=== PATIENT | male | born 1960 | race Caucasian/White ===

== ENCOUNTER 2018-12-31 08:16 | Inpatient (IN) | payer BC ==
[~2018-12-31 08:16] MED LIST: Adenosine 6 MG/2 ML SDV IVPUSH ONE
[2018-12-31] MEDS ORDERED: Adenosine 12 MG/4 ML SDV ONE (08:21)
[2018-12-31] MEDS ORDERED: Diltiazem 50 MG/10 ML SDV IVPUSH STA (08:31)
[2018-12-31] MEDS ORDERED: Diltiazem 50 MG/10 ML SDV ONE (08:32)
--- NOTE | 2018-12-31 08:44 | EDM.PDOC ---
ED HPI GENERAL MEDICAL PROBLEM - General Chief Complaint: Cardiovascular Problem Stated Complaint: [facility] Time Seen by Provider: 12/31/18 08:16 Source of Information: Reports: Patient, EMS History Limitations: Reports: No Limitations - History of Present Illness INITIAL COMMENTS - FREE TEXT/NARRATIVE: The patient states that he was exercising at home, beginning around 06:40. Around 07:10, he developed nausea and diaphoresis. He sat down and vomited, which made him feel better, but EMS was called. When EMS arrived, they found the patient to have a rapid regular heartbeat. An ECG was obtained and faxed to us, which appears to demonstrate an SVT at 196 bpm. At no time did the patient experience chest discomfort or lightheadedness. Upon arrival to the ED, the patient's heart rate was 201 bpm, still narrow complex on the ECG. 12 mg of adenosine was given, which slowed the patient's heart rate somewhat, after which it has remained regular at about 115 bpm. The patient states that he feels considerably better than he did. The patient states that he was diagnosed with atrial fibrillation in August 2018, while in [place]. He states that he was given a medicine to slow his heart down, for about 8 hours. He states that he was told that his heart enzyme was mildly elevated. He states that he suffered a second episode in September 2018, here. Review of the medical records finds that the patient was seen in this ED on 09/09/2018, with a complaint of tachycardia. He had no chest discomfort, lightheadedness, weakness or dyspnea. He was found to be in atrial flutter with 2:1 conduction, at 134 bpm. He was given Cardizem IV push and drip, and converted to a normal sinus rhythm and he was then discharged home with no new prescriptions. The patient then returned to this ED the following day, 09/10/2018, with an elevated heart rate in the 130s, and low oxygen saturation of 85%. He again denied having any chest discomfort, lightheadedness, or dyspnea. The ECG appeared to demonstrate paroxysmal atrial tachycardia. He was again given IV Cardizem, converting to atrial flutter with variable conduction, rate controlled. His labs were unremarkable. He was then admitted to the ICU. Additional metoprolol was prescribed, and the patient was discharged home the following day, 09/11/2018. The patient's PCP is Kwasi Leiva. His Quality Assurance Inspector is Dr. Le. - Related Data Allergies Allergy/AdvReac Type Severity Reaction Status Date / Time No Known Allergies Allergy Verified 12/31/18 08:26 Home Meds: Home Meds Fenofibrate 145 mg PO DAILY 12/31/18 [History] Flecainide [Tambocor] 100 mg PO DAILY 12/31/18 [History] Hydrochlorothiazide [Microzide] 12.5 mg PO DAILY 12/31/18 [History] Lisinopril 40 mg PO DAILY 12/31/18 [History] Metoprolol Succinate 200 mg PO DAILY 12/31/18 [History] atorvaSTATin [Lipitor] 80 mg PO DAILY 12/31/18 [History] Past Medical History HEENT History: Reports: Impaired Vision Cardiovascular History: Reports: Arrhythmia (Paroxysmal atrial tachycardia vs paroxysmal atrial fibrillation vs atrial flutter with variable conduction), High Cholesterol, Hypertension Respiratory History: Reports: Sleep Apnea (nightly CPAP) Gastrointestinal History: Reports: GERD Musculoskeletal History: Reports: Back Pain, Chronic, Fracture (right hand), Osteoarthritis - Infectious Disease History Infectious Disease History: Reports: Chicken Pox - Past Surgical History HEENT Surgical History: Reports: Oral Surgery (wisdom teeth extraction), Tonsillectomy (1980) GI Surgical History: Reports: Hernia, Abdominal (umbilical, 1994) Other GI Surgeries/Procedures: umbilical hernia Neurological Surgical History: Reports: Other (See Below) (Bilateral feet nerve ablation) Social & Family History - Family History Family Medical History: Noncontributory - Tobacco Use Smoking Status *Q: Former Smoker Years of Tobacco use: 42 Packs/Tins Daily: 1 Month/Year Tobacco Last Used: Quit mid - Caffeine Use Caffeine Use: Reports: Coffee - Alcohol Use Alcohol Use History: Yes Alcohol Use Frequency: Socially (occasionally to excess) - Recreational Drug Use Recreational Drug Use: No - Living Situation & Occupation Living situation: Reports: , with Spouse, with Family (1 son) Occupation: Employed ([employer]) ED ROS GENERAL - Review of Systems Review Of Systems: ROS reveals no pertinent complaints other than HPI. ED EXAM, GENERAL - Physical Exam Exam: See Below Exam Limited By: No Limitations General Appearance: Alert, WD/WN, No Apparent Distress Eye Exam: Bilateral Eye: EOMI, Normal Inspection Ears: Normal External Exam, Hearing Grossly Normal Nose: Normal Inspection Throat/Mouth: Normal Inspection, Normal Lips, Normal Voice, No Airway Compromise Head: Atraumatic, Normocephalic Neck: Normal Inspection, Full Range of Motion Respiratory/Chest: No Respiratory Distress, Lungs Clear, Normal Breath Sounds, No Accessory Muscle Use. No: Crackles, Rhonchi, Wheezing Cardiovascular: Normal Peripheral Pulses, No Edema, No Gallop, No JVD, No Murmur , No Rub, Tachycardia (regular) Peripheral Pulses: 3+: Radial (L), Radial (R) GI/Abdominal: Normal Bowel Sounds, Soft, Non-Tender, No Organomegaly, No Distention, No Abnormal Bruit, No Mass, Other (Obese) (Male) Exam: Deferred Rectal (Males) Exam: Deferred Back Exam: Normal Inspection, Full Range of Motion, NT Extremities: Normal Inspection, Normal Range of Motion, No Pedal Edema, Normal Capillary Refill Neurological: Alert, Oriented, Normal Cognition, No Motor/Sensory Deficits Psychiatric: Normal Affect Skin Exam: Warm, Intact, Normal Color, No Rash, Diaphoretic Course - Vital Signs Last Recorded V/S: Last Vital Signs Temp 36.8 C 12/31/18 08:21 Pulse 86 12/31/18 10:57 Resp 17 12/31/18 10:57 BP 131/71 12/31/18 11:31 Pulse Ox 96 12/31/18 10:57 - Orders/Labs/Meds Orders: Active Orders 24 hr Category Date Time Status Admission Status [Patient Status] [ADT] Routine ADT 12/31/18 11:48 Ordered EKG Documentation Completion [RC] STAT Care 12/31/18 08:32 Active TROPONIN I [CHEM] Timed Lab 12/31/18 13:00 Ordered Diltiazem 125 mg Med 12/31/18 08:45 Active Sodium Chloride 0.9% [Normal Saline] 100 ml IV TITRATE Sodium Chloride 0.9% [Normal Saline] 1,000 ml Med 12/31/18 08:45 Active IV ASDIRECTED Medication Orders Diltiazem HCl 125 mg/ Sodium (Chloride) 125 mls @ 10 mls/hr IV TITRATE KATTY; Protocol Last Admin: 12/31/18 09:05 Dose: 10 mg/hr, 10 mls/hr Sodium Chloride (Normal Saline) 1,000 mls @ 100 mls/hr IV ASDIRECTED KATTY Last Admin: 12/31/18 09:07 Dose: 100 mls/hr Labs: Laboratory Tests 12/31/18 12/31/18 Range/Units 09:00 09:00 WBC 6.28 (4.23-9.07) K/mm3 RBC 5.41 (4.63-6.08) M/mm3 Hgb 15.9 (13.7-17.5) gm/L Hct 47.3 (40.1-51.0) % MCV 87.4 (79.0-92.2) fl MCH 29.4 (25.7-32.2) pg MCHC 33.6 (32.2-35.5) g/dl RDW Std Deviation 42.4 (35.1-43.9) fL Plt Count 196 (163-337) K/mm3 MPV 10.1 (9.4-12.3) fl Neutrophils % (Manual) 76 H (40-60) % Band Neutrophils % 3 (0-10) % Lymphocytes % (Manual) 17 L (20-40) % Atypical Lymphs % 0 % Monocytes % (Manual) 3 (2-10) % Eosinophils % (Manual) 1 (0.8-7.0) % Basophils % (Manual) 0 L (0.2-1.2) Platelet Estimate Adequate RBC Morph Comment Normal Sodium 141 (136-145) mEq/L Potassium 3.4 L (3.5-5.1) mEq/L Chloride 103 (98-107) mEq/L Carbon Dioxide 26 (21-32) mEq/L Anion Gap 15.4 H (5-15) BUN 20 H (7-18) mg/dL Creatinine 1.2 (0.7-1.3) mg/dL Est Cr Clr Drug Dosing 59.81 mL/min Estimated GFR (MDRD) > 60 (>60) mL/min BUN/Creatinine Ratio 16.7 (14-18) Glucose 185 H (74-106) mg/dL Calcium 9.1 (8.5-10.1) mg/dL Magnesium 1.8 (1.8-2.4) mg/dl Total Bilirubin 0.5 (0.2-1.0) mg/dL AST 27 (15-37) U/L ALT 26 (16-63) U/L Alkaline Phosphatase 45 L (46-116) U/L Troponin I 0.107 H* (0.00-0.056) ng/mL Total Protein 7.3 (6.4-8.2) g/dl Albumin 3.9 (3.4-5.0) g/dl Globulin 3.4 gm/dL Albumin/Globulin Ratio 1.2 (1-2) Meds: Medications Generic Name Dose Route Start Last Admin Trade Name Freq PRN Reason Stop Dose Admin Diltiazem HCl 125 mg/ Sodium 125 mls @ 10 mls/hr 12/31/18 08:45 12/31/18 09: 05 Chloride IV 10 mg/hr TITRATE KATTY 10 mls/hr Administration Protocol 10 MG/HR Sodium Chloride 1,000 mls @ 100 mls/hr 12/31/18 08:45 12/31/18 09:07 Normal Saline IV 100 mls/hr ASDIRECTED KATTY Administration Discontinued Medications Generic Name Dose Route Start Last Admin Trade Name Freq PRN Reason Stop Dose Admin Adenosine Confirm 12/31/18 08:21 12/31/18 08:58 Adenocard Administered 12/31/18 08:22 Not Given Dose 36 mg .ROUTE .STK-MED ONE Adenosine 12 mg 12/31/18 08:15 12/31/18 08:28 Adenocard IVPUSH 12/31/18 08:16 12 mg NOW ONE Administration Diltiazem HCl 10 mg 12/31/18 08:31 12/31/18 08:58 Cardizem IVPUSH 12/31/18 08:32 Not Given ONETIME STA Diltiazem HCl Confirm 12/31/18 08:32 12/31/18 08:58 Cardizem Administered 12/31/18 08:33 Not Given Dose 50 mg .ROUTE .STK-MED ONE - Re-Assessments/Exams Free Text/Narrative Re-Assessment/Exam: 12/31/18 08:38 The ECG prior to giving adenosine showed a narrow complex tachycardia, regular, at 201 bpm. After adenosine was given, there was a slowdown of ventricular response, with no P waves being seen, and since covering from the adenosine, the patient is now in a persistent regular rhythm at 108 bpm, most likely atrial flutter with 3:[address] depressions persist. We will start the patient on a Cardizem drip. Labs have been ordered. 12/31/18 10:02 Portable chest radiograph is read by Dr. Maharaj as: 1. Nothing acute is seen on portable chest x-ray. 12/31/18 10:19 Test results discussed with the patient. The patient's troponin has returned mildly elevated 0.107, and his blood glucose has returned elevated at 185. The remainder of his workup is unremarkable. The patient's elevated troponin does not necessarily mean a myocardial infarction. It could be elevated due to decreased filling time, related to his elevated heart rate. It will need to be repeated. The patient's elevated blood glucose indicates that he has prediabetes. I briefly discussed getting the patient on a diabetic/low glycemic index diet. He will need to be educated in this regard. I recommended that the patient be admitted to the hospital for continued rate control and repeat troponin. The patient agreed. 12/31/18 10:[address] Adames at 10:53. He accepted the patient for admission to the ICU, however, no ICU beds are currently available, therefore the patient will need to be kept in the ED until an ICU bed is made available. In the meantime, I have ordered a repeat troponin to be drawn at 13:00, 4 hours after the first troponin. The patient will be kept on the Cardizem drip and IV fluid. He will be allowed to eat. Departure - Departure Time of Disposition: 11:00 Disposition: Admitted As Inpatient 65 Condition: Fair Clinical Impression: Atrial fibrillation and flutter, Elevated troponin I level, Acute hyperglycemia Referrals: Kwasi Leiva PA-C [Primary Care Provider] - Bk Le MD [Ordering Only Provider] - - My Orders Last 24 Hours: My Active Orders 12/31/18 08:32 EKG Documentation Completion [RC] STAT 12/31/18 08:45 Diltiazem 125 mg Sodium Chloride 0.9% [Normal Saline] 100 ml IV TITRATE Sodium Chloride 0.9% [Normal Saline] 1,000 ml IV ASDIRECTED 12/31/18 11:48 Admission Status [Patient Status] [ADT] Routine 12/31/18 13:00 TROPONIN I [CHEM] Timed - Assessment/Plan Last 24 Hours: My Active Orders 12/31/18 08:32 EKG Documentation Completion [RC] STAT 12/31/18 08:45 Diltiazem 125 mg Sodium Chloride 0.9% [Normal Saline] 100 ml IV TITRATE Sodium Chloride 0.9% [Normal Saline] 1,000 ml IV ASDIRECTED 12/31/18 11:48 Admission Status [Patient Status] [ADT] Routine 12/31/18 13:00 TROPONIN I [CHEM] Timed
[2018-12-31] MEDS ORDERED: Diltiazem 125 MG in Sodium Chloride 0.9% 100 ML IV SCH (08:45)
[2018-12-31] MEDS: Sodium Chloride 0.9% 1,000 ML IV SCH ×2 (09:07→22:17)
--- NOTE | 2018-12-31 09:51 | CR ---
Chest: Portable view of the chest was obtained. Comparison: Prior chest x-ray of 09/09/18. Heart size and mediastinum are within normal limits for portable technique. Lungs are clear. Bony structures are grossly intact. Impression: 1. Nothing acute is seen on portable chest x-ray. Diagnostic code #1
[2018-12-31] MEDS ORDERED: HYDROmorphone 1 MG/ML Syringe IVPUSH PRN (12:33)
[2018-12-31] MEDS ORDERED: Ondansetron 4 MG/2 ML SDV IV PRN (12:33)
[2018-12-31] MEDS ORDERED: Acetaminophen/HYDROcodone 325-5 MG Tab PO PRN (12:33)
[2018-12-31] MEDS ORDERED: Docusate Sodium 100 MG Cap PO PRN (12:33)
[2018-12-31] MEDS ORDERED: Albuterol/Ipratropium 3.0-0.5 MG/3 ML Neb Soln NEB PRN (12:33)
[2018-12-31] MEDS ORDERED: Acetaminophen 325 MG Tab PO PRN (12:33)
[2018-12-31] MEDS ORDERED: Bisacodyl 5 MG Tab PO PRN (12:33)
[2018-12-31] MEDS ORDERED: Polyethylene Glycol 3350 Powder 17 GM Packet PO PRN (12:33)
[2018-12-31 13:24] LABS: HEMOGLOBIN A1C 6.1 % (4.50-6.20)
[2018-12-31] MEDS: Potassium Chloride 20 MEQ Tab.ER PO SCH ×2 (14:37→17:20)
--- NOTE | 2018-12-31 17:19 | PCM.HP ---
H&P History of Present Illness - General Date of Service: 12/31/18 Admit Problem/Dx: Admission Diagnosis/Problem Admission Diagnosis/Problem Atrial fibrillation and flutter Source of Information: Patient History Limitations: Reports: No Limitations - History of Present Illness Initial Comments - Free Text/Narative: This is a 58 yo male with past medical h/o HTN, Arrhythmia (Paroxysmal atrial tachy vs paroxysmal Afib vs Aflutter), HLD, CLEMENCIA w/ CPAP, GERD, OA who comes in for Afib/flutter w/ RVR. He was first diagnosed w/ Afib Aug 2018 in [place]. His last similar episode was here on 09/09/19 and 09/10/19. He c/o diaphoresis, palpitations, and vomiting this AM while exercising at home. He denies CP, SOB, lightheadedness, diarrhea or other GI/ complaints. EMS EKG showed SVT at 196 bpm. His initial work up in ED shows a CBC remarkable for Neut 76%, Lymph 17%. Chemistry is significant for K 3.4, AGap 15.4, BUN 20, Glu 185, Alk Phos 45. Troponin 0.107. TSH and T4 WNL. EKG showed narrow complex at 201 bpm. Adenosine 12 mg was given and became persistent regular rhythm at 108 bpm, most likely Aflutter with 3:[address] depressions persist. Cardizem drip started in ED. He is subsequently admitted to the ICU. He is a Full Code. His PCP is Kwasi Leiva PA-C. 0 Pain Score (Numeric/FACES): 0 - Related Data Allergies/Adverse Reactions: Allergies Allergy/AdvReac Type Severity Reaction Status Date / Time No Known Allergies Allergy Verified 12/31/18 13:33 Home Medications: Home Meds Ascorbic Acid [Vitamin C] 1,000 mg PO DAILY 12/31/18 [History] Aspirin [Halfprin] 81 mg PO BEDTIME 12/31/18 [History] Calcium Carbonate [Calcium] 600 mg PO DAILY 12/31/18 [History] Cinnamon Bark [Cinnamon] 500 mg PO DAILY 12/31/18 [History] Fenofibrate 145 mg PO DAILY 12/31/18 [History] Flecainide [Tambocor] 100 mg PO DAILY 12/31/18 [History] Gluc 2KCl/Chondr/Rm Hy/Hy Ac [Glucosamine & Chondroitin Cap] 1 cap PO DAILY [History] Hydrochlorothiazide [Microzide] 12.5 mg PO DAILY 12/31/18 [History] Lisinopril 40 mg PO DAILY 12/31/18 [History] Melatonin 6 mg PO BEDTIME PRN 12/31/18 [History] Metoprolol Succinate 100 mg PO BID 12/31/18 [History] Multivitamin [Multivitamins] 1 cap PO DAILY 12/31/18 [History] [place]-3/DHA/Epa/Fish Oil [[place]-3 Fish Oil Softgel] 520 mg PO DAILY 12/31/18 [ History] Vitamin E 400 units PO DAILY 12/31/18 [History] atorvaSTATin [Lipitor] 80 mg PO DAILY 12/31/18 [History] Past Medical History HEENT History: Reports: Impaired Vision Other HEENT History: wears eyeglasses for reading. Cardiovascular History: Reports: Arrhythmia, High Cholesterol, Hypertension Other Cardiovascular History: Paroxysmal atrial tachycardia. It is therefore on Eliquis to prevent stroke Respiratory History: Reports: Sleep Apnea Other Respiratory History: uses C-PAP Gastrointestinal History: Reports: GERD Musculoskeletal History: Reports: Fracture, Osteoarthritis Dermatologic History: Reports: Psoriasis - Infectious Disease History Infectious Disease History: Reports: Chicken Pox - Past Surgical History HEENT Surgical History: Reports: Oral Surgery, Tonsillectomy GI Surgical History: Reports: Hernia, Abdominal Other GI Surgeries/Procedures: umbilical hernia MESH Neurological Surgical History: Reports: Other (See Below) Social & Family History - Family History Family Medical History: Noncontributory - Tobacco Use Smoking Status *Q: Former Smoker Years of Tobacco use: 42 Packs/Tins Daily: 1 Used Tobacco, but Quit: Yes Month/Year Tobacco Last Used: 04/2017 - Caffeine Use Caffeine Use: Reports: Coffee - Alcohol Use Days Per Week of Alcohol Use: 5 Number of Drinks Per Day: 5 Total Drinks Per Week: 25 - Recreational Drug Use Recreational Drug Use: No - Living Situation & Occupation Living situation: Reports: , with Spouse, with Family (1 son) Occupation: Employed ([employer]) H&P Review of Systems - Review of Systems: Review Of Systems: See Below General: Reports: No Symptoms. Denies: Fever, Chills, Weakness, Fatigue HEENT: Reports: No Symptoms Pulmonary: Reports: No Symptoms. Denies: Shortness of Breath, Cough Cardiovascular: Reports: Blood Pressure Problem. Denies: Chest Pain, Palpitations, Dyspnea on Exertion, Lightheadedness Gastrointestinal: Reports: No Symptoms. Denies: Abdominal Pain, Diarrhea, Nausea, Vomiting Genitourinary: Reports: No Symptoms Musculoskeletal: Reports: No Symptoms Skin: Reports: No Symptoms Psychiatric: Reports: No Symptoms. Denies: Confusion Neurological: Reports: No Symptoms. Denies: Confusion Hematologic/Lymphatic: Reports: No Symptoms Immunologic: Reports: No Symptoms Exam - Exam Exam: See Below - Vital Signs Vital Signs: Last Vital Signs Temp 97.7 F 12/31/18 13:05 Pulse 72 12/31/18 15:00 Resp 20 12/31/18 15:00 BP 150/82 H 12/31/18 15:00 Pulse Ox 99 12/31/18 15:00 Weight: 261 lb - Exam Quality Assessment: DVT Prophylaxis General: Alert, Oriented, Cooperative HEENT: Conjunctiva Clear, EACs Clear, EOMI, Hearing Intact, Mucosa Moist & [place] , Nares Patent, Normal Nasal Septum, Posterior Pharynx Clear, PERRLA Neck: Supple, Trachea Midline, 2 Lungs: Clear to Auscultation, Normal Respiratory Effort Cardiovascular: Regular Rhythm, Tachycardia GI/Abdominal Exam: Normal Bowel Sounds, Soft, Non-Tender, No Organomegaly, No Distention, No Abnormal Bruit, No Mass, Pelvis Stable (Male) Exam: Deferred Rectal (Males) Exam: Deferred Back Exam: Normal Inspection Extremities: Normal Inspection, Normal Range of Motion, Non-Tender, No Pedal Edema, Normal Capillary Refill Peripheral Pulses: 3+: Posterior Tibial (L), Posterior Tibial (R), Dorsalis Pedis (L), Dorsalis Pedis (R) Skin: Warm, Dry, Intact Neurological: Cranial Nerves Intact (grossly), Strength Equal Bilateral, Sensation Intact Neuro Extensive - Mental Status: Alert, Oriented x3, Normal Mood/Affect, Normal Cognition, Memory Intact Psychiatric: Alert, Normal Affect, Normal Mood - Patient Data Lab Results Last 24 hrs: Laboratory Results - last 24 hr 12/31/18 12/31/18 12/31/18 Range/Units 09:00 09:00 09:00 WBC 6.28 (4.23-9.07) K/mm3 RBC 5.41 (4.63-6.08) M/mm3 Hgb 15.9 (13.7-17.5) gm/L Hct 47.3 (40.1-51.0) % MCV 87.4 (79.0-92.2) fl MCH 29.4 (25.7-32.2) pg MCHC 33.6 (32.2-35.5) g/dl RDW Std Deviation 42.4 (35.1-43.9) fL Plt Count 196 (163-337) K/mm3 MPV 10.1 (9.4-12.3) fl Neutrophils % (Manual) 76 H (40-60) % Band Neutrophils % 3 (0-10) % Lymphocytes % (Manual) 17 L (20-40) % Atypical Lymphs % 0 % Monocytes % (Manual) 3 (2-10) % Eosinophils % (Manual) 1 (0.8-7.0) % Basophils % (Manual) 0 L (0.2-1.2) Platelet Estimate Adequate RBC Morph Comment Normal Sodium 141 (136-145) mEq/L Potassium 3.4 L (3.5-5.1) mEq/L Chloride 103 (98-107) mEq/L Carbon Dioxide 26 (21-32) mEq/L Anion Gap 15.4 H (5-15) BUN 20 H (7-18) mg/dL Creatinine 1.2 (0.7-1.3) mg/dL Est Cr Clr Drug Dosing 59.81 mL/min Estimated GFR (MDRD) > 60 (>60) mL/min BUN/Creatinine Ratio 16.7 (14-18) Glucose 185 H (74-106) mg/dL Hemoglobin A1c (4.50-6.20) % Calcium 9.1 (8.5-10.1) mg/dL Magnesium 1.8 (1.8-2.4) mg/dl Total Bilirubin 0.5 (0.2-1.0) mg/dL AST 27 (15-37) U/L ALT 26 (16-63) U/L Alkaline Phosphatase 45 L (46-116) U/L Troponin I 0.107 H* (0.00-0.056) ng/mL Total Protein 7.3 (6.4-8.2) g/dl Albumin 3.9 (3.4-5.0) g/dl Globulin 3.4 gm/dL Albumin/Globulin Ratio 1.2 (1-2) Free T4 0.85 (0.76-1.46) ng/dL TSH 3rd Generation 1.131 (0.358-3.74) uIU/mL Urine Opiates Screen (VKTSVZ=194) Ur Buprenorphine Scrn (CUTOFF=10) Ur Oxycodone Screen (MZZ3YK=637) Urine Methadone Screen (YLS0KX=163) Ur Propoxyphene Screen (DBGZLR=632) Ur Barbiturates Screen (NCHBSB=133) Ur Tricyclics Screen (SZQAIU=390) Ur Phencyclidine Scrn (CUTOFF=25) Ur Amphetamine Screen (OXHXNH=196) U Methamphetamines Scrn (MZHUJE=660) U Benzodiazepines Scrn (IVTQTC=300) U Cocaine Metab Screen (ACEDLF=132) U Marijuana (THC) Screen (CUTOFF=50) 12/31/18 12/31/18 12/31/18 Range/Units 09:00 13:25 16:08 WBC (4.23-9.07) K/mm3 RBC (4.63-6.08) M/mm3 Hgb (13.7-17.5) gm/L Hct (40.1-51.0) % MCV (79.0-92.2) fl MCH (25.7-32.2) pg MCHC (32.2-35.5) g/dl RDW Std Deviation (35.1-43.9) fL Plt Count (163-337) K/mm3 MPV (9.4-12.3) fl Neutrophils % (Manual) (40-60) % Band Neutrophils % (0-10) % Lymphocytes % (Manual) (20-40) % Atypical Lymphs % % Monocytes % (Manual) (2-10) % Eosinophils % (Manual) (0.8-7.0) % Basophils % (Manual) (0.2-1.2) Platelet Estimate RBC Morph Comment Sodium (136-145) mEq/L Potassium (3.5-5.1) mEq/L Chloride (98-107) mEq/L Carbon Dioxide (21-32) mEq/L Anion Gap (5-15) BUN (7-18) mg/dL Creatinine (0.7-1.3) mg/dL Est Cr Clr Drug Dosing mL/min Estimated GFR (MDRD) (>60) mL/min BUN/Creatinine Ratio (14-18) Glucose (74-106) mg/dL Hemoglobin A1c 6.10 (4.50-6.20) % Calcium (8.5-10.1) mg/dL Magnesium (1.8-2.4) mg/dl Total Bilirubin (0.2-1.0) mg/dL AST (15-37) U/L ALT (16-63) U/L Alkaline Phosphatase (46-116) U/L Troponin I 0.629 H* (0.00-0.056) ng/mL Total Protein (6.4-8.2) g/dl Albumin (3.4-5.0) g/dl Globulin gm/dL Albumin/Globulin Ratio (1-2) Free T4 (0.76-1.46) ng/dL TSH 3rd Generation (0.358-3.74) uIU/mL Urine Opiates Screen Negative (ORUUDQ=987) Ur Buprenorphine Scrn Negative (CUTOFF=10) Ur Oxycodone Screen Negative (PWX2WY=607) Urine Methadone Screen Negative (LVY7RJ=766) Ur Propoxyphene Screen Negative (NMPIVP=241) Ur Barbiturates Screen Negative (IUBFVU=903) Ur Tricyclics Screen Negative (DKJUTI=801) Ur Phencyclidine Scrn Negative (CUTOFF=25) Ur Amphetamine Screen Negative (QPFQWD=767) U Methamphetamines Scrn Negative (ZPUKAE=006) U Benzodiazepines Scrn Negative (HDFEGF=693) U Cocaine Metab Screen Negative (MWILOH=885) U Marijuana (THC) Screen Negative (CUTOFF=50) Result Diagrams: 12/31/18 09:00 12/31/18 09:00 - Problem List (1) Acute hyperglycemia SNOMED Code(s): 813371910 ICD Code: R73.9 - HYPERGLYCEMIA, UNSPECIFIED Status: Acute Priority: High Current Visit: Yes (2) Atrial fibrillation and flutter SNOMED Code(s): 413452284 ICD Code: I48.91 - UNSPECIFIED ATRIAL FIBRILLATION; I48.92 - UNSPECIFIED ATRIAL FLUTTER Status: Acute Priority: High Current Visit: Yes (3) Elevated troponin I level SNOMED Code(s): 324336383 ICD Code: R74.8 - ABNORMAL LEVELS OF OTHER SERUM ENZYMES Status: Acute Priority: High Current Visit: Yes Problem List Initiated/Reviewed/Updated: Yes Orders Last 24hrs: Active Orders 24 hr Category Date Time Status Admission Status [Patient Status] [ADT] Routine ADT 12/31/18 11:48 Active Cardiac Monitoring [RC] .PRN Care 12/31/18 12:33 Active Height and Weight [RC] DAILY Care 12/31/18 12:33 Active Intake and Output [RC] 04,16 Care 12/31/18 12:33 Active Oxygen Therapy [RC] .PRN Care 12/31/18 12:33 Active RT Aerosol Therapy [RC] ASDIRECTED Care 12/31/18 12:35 Active Up With Assistance [RC] .PRN Care 12/31/18 12:33 Active Up ad Mary [RC] .PRN Care 12/31/18 12:33 Active VTE/DVT Education [RC] 09,21 Care 12/31/18 12:33 Active Vital Signs [RC] Q4HR Care 12/31/18 12:33 Active Consult to Case Management/Student Records Coordinator [CONS] Cons 12/31/18 12:33 Active Routine Consult to Truck Headlight Assembler [CONS] Routine Cons 12/31/18 12:33 Active Heart Healthy Diet [DIET] Diet 12/31/18 Lunch Active BASIC METABOLIC PANEL,BMP [CHEM] AM Lab 01/01/19 05:11 Ordered BASIC METABOLIC PANEL,BMP [CHEM] AM Lab 01/02/19 05:11 Ordered BASIC METABOLIC PANEL,BMP [CHEM] AM Lab 01/03/19 05:11 Ordered MAGNESIUM [CHEM] AM Lab 01/01/19 05:11 Ordered MAGNESIUM [CHEM] AM Lab 01/02/19 05:11 Ordered MAGNESIUM [CHEM] AM Lab 01/03/19 05:11 Ordered TROPONIN I [CHEM] Routine Lab 12/31/18 19:00 Ordered Acetaminophen [Tylenol] Med 12/31/18 12:33 Active 650 mg PO Q4H PRN Acetaminophen/HYDROcodone [[place] 325-5 MG] Med 12/31/18 12:33 Active 1 tab PO Q4H PRN Albuterol/Ipratropium [DuoNeb 3.0-0.5 MG/3 ML] Med 12/31/18 12:33 Active 3 ml NEB Q4H PRN Bisacodyl [Dulcolax] Med 12/31/18 12:33 Active 5 mg PO DAILY PRN Diltiazem 125 mg Med 12/31/18 08:45 Active Sodium Chloride 0.9% [Normal Saline] 100 ml IV TITRATE Docusate Sodium [Colace] Med 12/31/18 12:33 Active 100 mg PO BID PRN Docusate Sodium/Sennosides [Senna Plus] Med 12/31/18 12:33 Active 1 tab PO BID PRN Enoxaparin [Lovenox] Med 01/01/19 09:00 Active 40 mg SUBCUT DAILY Fenofibrate Nanocrystallized [Tricor] Med 01/01/19 09:00 Active 145 mg PO DAILY Flecainide [Tambocor] Med 12/31/18 21:00 Active 100 mg PO BEDTIME HYDROmorphone [Dilaudid] Med 12/31/18 12:33 Active 0.25 mg IVPUSH Q2H PRN LORazepam [Ativan] Med 12/31/18 12:33 Active 1 mg IV Q6H PRN Lisinopril [Prinivil] Med 01/01/19 09:00 Active 40 mg PO DAILY Metoprolol Succinate [Toprol XL] Med 12/31/18 21:00 Active 100 mg PO BID Ondansetron [Zofran] Med 12/31/18 12:33 Active 4 mg IV Q6H PRN Pharmacy to Dose - Magnesium R [Pharmacy to Dose - Med 12/31/18 12:45 Active Magnesium Replacement] 0 dose .XX ASDIRECTED PRN Pharmacy to Dose - Potassium R [Pharmacy to Dose - Med 12/31/18 12:45 Active Potassium Replacement] 0 dose .XX ASDIRECTED PRN Polyethylene Glycol 3350 [MiraLAX] Med 12/31/18 12:33 Active 17 gm PO DAILY PRN Rosuvastatin [Crestor] Med 01/01/19 09:00 Active 20 mg PO DAILY Sodium Chloride 0.9% [Normal Saline] 1,000 ml Med 12/31/18 08:45 Active IV ASDIRECTED Temazepam [Restoril] Med 12/31/18 21:00 Active 15 mg PO BEDTIME PRN hydrALAZINE [Apresoline] Med 12/31/18 12:32 Active 20 mg IVPUSH Q4H PRN hydroCHLOROthiazide Med 01/01/19 09:00 Active 12.5 mg PO DAILY Resuscitation Status Routine Resus Stat 12/31/18 12:33 Ordered Medication Orders Acetaminophen (Tylenol) 650 mg PO Q4H PRN PRN Reason: Pain (Mild 1-3)/fever Hydrocodone Bitart/Acetaminophen ([place] 325-5 Mg) 1 tab PO Q4H PRN PRN Reason: Pain (moderate 4-6) Albuterol/Ipratropium (Duoneb 3.0-0.5 Mg/3 Ml) 3 ml NEB Q4H PRN PRN Reason: Shortness Of Breath/wheezing Bisacodyl (Dulcolax) 5 mg PO DAILY PRN PRN Reason: Constipation Docusate Sodium (Colace) 100 mg PO BID PRN PRN Reason: Constipation Enoxaparin Sodium (Lovenox) 40 mg SUBCUT DAILY [facility] Fenofibrate (Tricor) 145 mg PO DAILY KATTY Flecainide Acetate (Tambocor) 100 mg PO BEDTIME KATTY Hydralazine HCl (Apresoline) 20 mg IVPUSH Q4H PRN PRN Reason: Hypertension Hydrochlorothiazide (Hydrochlorothiazide) 12.5 mg PO DAILY KATTY Hydromorphone HCl (Dilaudid) 0.25 mg IVPUSH Q2H PRN PRN Reason: Pain (severe 7-10) Diltiazem HCl 125 mg/ Sodium (Chloride) 125 mls @ 10 mls/hr IV TITRATE KATTY; Protocol Last Admin: 12/31/18 09:05 Dose: 10 mg/hr, 10 mls/hr Sodium Chloride (Normal Saline) 1,000 mls @ 100 mls/hr IV ASDIRECTED KATTY Last Admin: 12/31/18 09:07 Dose: 100 mls/hr Lisinopril (Prinivil) 40 mg PO DAILY KATTY Lorazepam (Ativan) 1 mg IV Q6H PRN PRN Reason: Anxiety Magnesium Sulfate (Pharmacy To Dose - Magnesium Replacement) 0 dose .XX ASDIRECTED PRN PRN Reason: RX TO [place]ACH MAG LEVELS Metoprolol Succinate (Toprol Xl) 100 mg PO BID KATTY Ondansetron HCl (Zofran) 4 mg IV Q6H PRN PRN Reason: Nausea/Vomiting Polyethylene Glycol (Miralax) 17 gm PO DAILY PRN PRN Reason: Constipation Potassium Chloride (Pharmacy To Dose - Potassium Replacement) 0 dose .XX ASDIRECTED PRN PRN Reason: RX TO WATCH K LEVELS Rosuvastatin Calcium (Crestor) 20 mg PO DAILY KATTY Senna/Docusate Sodium (Senna Plus) 1 tab PO BID PRN PRN Reason: Constipation Temazepam (Restoril) 15 mg PO BEDTIME PRN PRN Reason: Sleep Assessment/Plan Comment:: Assessment/Plan: Acute: Afib/flutter w/ RVR * Acute on Chronic * Diagnosed w/ Afib in Aug 2018 in [place], seen here in September: * 09/09/2018: c/o Tachycardia--> EKG showed Aflutter w/ 2:1 conduction 134 bpm. Cardizem IV push and drip--> converted to a NSR and D/C'd * 09/10/2018: c/o HR 130s, O2 85% RA--> EKG showed paroxysmal ATach. Cardizem IV push--> converted to Aflutter w/ variable conduction. Admitted to ICU. Metoprolol given and D/C'd. * Both visits did not c/o CP, lightheadedness, weakness or dyspnea. * Today 12/31/18: * Was working out at home and felt palpitations, had vomiting and diaphoresis * EMS EKG showed SVT at 196 bpm * EKG in ED showed narrow complex tachycardia at 201 bpm * Adenosine given in ED--> persistent regular rhythm at 108 bpm, most likely Aflutter with 3:[address] depressions persist. * Cardizem drip started in ED * CXR shows nothing acute * TSH, T4 WNL * Continue at home Flecainide and Metoprolol BID * Lovenox, Metoprolol PRN * F/U with credit card specialist, Dr. Le in [place] Elevated Troponin * Likely 2/2 cardiac ischemia from above * Denies CP, diaphoresis * Does have risk factors for CAD (HTN, HLD, Former smoker- 1ppd x 42 years, Quit mid-2016) * 0.107--> 0.629--> 0.823 * Stress test in AM * EKG * Serial troponins Prediabetic * No h/o DM2 per pt * Glucose elevated 185 in ED * A1C 6.1 * Diabetic Education * Control w/ diet and exercise Hypokalemia * K 3.4 * Monitor and Replenish PRN Chronic: HTN Arrhythmia (Paroxysmal Atach vs paroxysmal Afib vs Aflutter)--> on Flecainide and Metoprolol; continue HLD * Lipid panel pending CLEMENCIA w/ CPAP GERD OA Plan: Admit to ICU Continue some home medications; orders as above Routine AM Labs Heart Healthy/Consistent Carb diet DVT/GI Prophylaxis Code status: Full Code; PCP: Kwasi Leiva PA-C
[2018-12-31] MEDS ORDERED: Temazepam 15 MG Cap PO PRN (21:00)
[2018-12-31] MEDS ORDERED: Enoxaparin 40 MG/0.4 ML Syringe SUBCUT ONE (21:00)
[2018-12-31] MEDS ORDERED: Flecainide 50 MG Tab PO SCH (21:00)
[2018-12-31] MEDS: Temazepam 7.5 MG Cap PO PRN (22:03)
[2018-12-31] MEDS: Aspirin 81 MG Tab.EC PO SCH (22:03)
[2018-12-31] MEDS: Metoprolol Succinate 50 MG Tab.ER PO SCH (22:03)
[2018-12-31] MEDS: LORazepam 2 MG/ML SDV IV PRN (22:11)
[2019-01-01] MEDS: Metoprolol Tartrate 5 MG/5 ML SDV IVPUSH PRN (03:18)
[2019-01-01] MEDS: LORazepam 2 MG/ML SDV IV PRN ×2 (04:00→21:53)
[2019-01-01] MEDS: Sodium Chloride 0.9% 1,000 ML IV SCH ×2 (08:04→18:48)
[2019-01-01] MEDS: Metoprolol Succinate 50 MG Tab.ER PO SCH (08:06)
[2019-01-01] MEDS: Hydrochlorothiazide 12.5 MG Cap PO SCH (08:06)
[2019-01-01] MEDS: Calcium Carbonate 600 MG Tab PO SCH (08:07)
[2019-01-01] MEDS: Rosuvastatin 10 MG Tab PO SCH (08:07)
[2019-01-01] MEDS: Lisinopril 20 MG Tab PO SCH (08:07)
[2019-01-01] MEDS: Fenofibrate Nanocrystallized 145 MG Tab PO SCH (08:07)
[2019-01-01] MEDS: Multivitamins,Therapeutic Tab PO SCH (08:07)
[2019-01-01] MEDS ORDERED: Magnesium Sulfate/Water 4 GM in Premix Bag 1 BAG IV ONE (08:15)
[2019-01-01] MEDS ORDERED: Enoxaparin 40 MG/0.4 ML Syringe SUBCUT SCH (09:00)
[2019-01-01] MEDS: Flecainide 50 MG Tab PO SCH ×2 (11:47→21:15)
[2019-01-01] MEDS: hydrALAZINE 20 MG/ML SDV IVPUSH PRN (13:49)
[2019-01-01] MEDS ORDERED: Metoprolol Succinate 50 MG Tab.ER PO ONE (15:00)
[2019-01-01] MEDS: Enoxaparin 120 MG/0.8 ML Syringe SUBCUT SCH (16:17)
--- NOTE | 2019-01-01 17:09 | PCM.PN ---
- General Info Date of Service: 01/01/19 - Patient Data Vitals - Most Recent: Last Vital Signs Temp 36.1 C 01/01/19 16:00 Pulse 103 H 01/01/19 16:00 Resp 18 01/01/19 16:00 BP 142/84 H 01/01/19 16:00 Pulse Ox 95 01/01/19 16:00 Weight - Most Recent: 117.39 kg I&O - Last 24 Hours: Intake & Output 01/01/19 01/01/19 01/01/19 06:59 14:59 22:59 Intake Total 2548 120 2711 Output Total 400 1600 Balance 2148 -1480 2711 Lab Results Last 24 Hours: Laboratory Results - last 24 hr 12/31/18 01/01/19 01/01/19 Range/Units 18:33 05:50 16:00 Sodium 138 (136-145) mEq/L Potassium 3.9 (3.5-5.1) mEq/L Chloride 104 (98-107) mEq/L Carbon Dioxide 27 (21-32) mEq/L Anion Gap 10.9 (5-15) BUN 17 (7-18) mg/dL Creatinine 1.0 (0.7-1.3) mg/dL Est Cr Clr Drug Dosing 71.78 mL/min Estimated GFR (MDRD) > 60 (>60) mL/min BUN/Creatinine Ratio 17.0 (14-18) Glucose 115 H (74-106) mg/dL Calcium 8.3 L (8.5-10.1) mg/dL Magnesium 1.5 L (1.8-2.4) mg/dl CK-MB (CK-2) 1.5 (0-3.6) ng/ml Troponin I 0.823 H* 0.360 H* 0.265 H* (0.00-0.056) ng/mL Triglycerides 370 H (<150) mg/dL Cholesterol 141 (<200) mg/dL LDL Cholesterol Direct 74 (<100) mg/dL HDL Cholesterol 29.0 L (40-59) mg/dL Med Orders - Current: Current Medications Acetaminophen (Tylenol) 650 mg PO Q4H PRN PRN Reason: Pain (Mild 1-3)/fever Hydrocodone Bitart/Acetaminophen ([place] 325-5 Mg) 1 tab PO Q4H PRN PRN Reason: Pain (moderate 4-6) Albuterol/Ipratropium (Duoneb 3.0-0.5 Mg/3 Ml) 3 ml NEB Q4H PRN PRN Reason: Shortness Of Breath/wheezing Aspirin (Halfprin) 81 mg PO BEDTIME [facility] Last Admin: 12/31/18 22:03 Dose: 81 mg Bisacodyl (Dulcolax) 5 mg PO DAILY PRN PRN Reason: Constipation Calcium Carbonate/Glycine (Calcium Carbonate) 600 mg PO DAILY [facility] Last Admin: 01/01/19 08:07 Dose: 600 mg Chlordiazepoxide HCl (Librium) 25 mg PO TID [facility] Docusate Sodium (Colace) 100 mg PO BID PRN PRN Reason: Constipation Enoxaparin Sodium (Lovenox) 120 mg SUBCUT Q12H [facility] Last Admin: 01/01/19 16:17 Dose: 120 mg Fenofibrate (Tricor) 145 mg PO DAILY [facility] Last Admin: 01/01/19 08:07 Dose: 145 mg Flecainide Acetate (Tambocor) 100 mg PO BID [facility] Last Admin: 01/01/19 11:47 Dose: 100 mg Hydralazine HCl (Apresoline) 20 mg IVPUSH Q4H PRN PRN Reason: Hypertension Last Admin: 01/01/19 13:49 Dose: 20 mg Hydrochlorothiazide (Hydrochlorothiazide) 12.5 mg PO DAILY [facility] Last Admin: 01/01/19 08:06 Dose: 12.5 mg Hydromorphone HCl (Dilaudid) 0.25 mg IVPUSH Q2H PRN PRN Reason: Pain (severe 7-10) Diltiazem HCl 125 mg/ Sodium (Chloride) 125 mls @ 10 mls/hr IV TITRATE [facility]; Protocol Last Admin: 12/31/18 09:05 Dose: 10 mg/hr, 10 mls/hr Sodium Chloride (Normal Saline) 1,000 mls @ 100 mls/hr IV ASDIRECTED [facility] Last Admin: 01/01/19 08:04 Dose: 100 mls/hr Lisinopril (Prinivil) 40 mg PO DAILY [facility] Last Admin: 01/01/19 08:07 Dose: 40 mg Lorazepam (Ativan) 1 mg IV Q6H PRN PRN Reason: Anxiety Last Admin: 01/01/19 04:00 Dose: 1 mg Metoprolol Succinate (Toprol Xl) 200 mg PO Q24H [facility] Metoprolol Tartrate (Lopressor) 5 mg IVPUSH Q4H PRN PRN Reason: Tachycardia Last Admin: 01/01/19 03:18 Dose: 5 mg Multivitamins (Thera) 1 each PO DAILY [facility] Last Admin: 01/01/19 08:07 Dose: 1 each Ondansetron HCl (Zofran) 4 mg IV Q6H PRN PRN Reason: Nausea/Vomiting Polyethylene Glycol (Miralax) 17 gm PO DAILY PRN PRN Reason: Constipation Rosuvastatin Calcium (Crestor) 20 mg PO DAILY [facility] Last Admin: 01/01/19 08:07 Dose: 20 mg Senna/Docusate Sodium (Senna Plus) 1 tab PO BID PRN PRN Reason: Constipation Temazepam (Restoril) 7.5 mg PO BEDTIME PRN PRN Reason: Sleep Last Admin: 12/31/18 22:03 Dose: 7.5 mg Discontinued Medications Adenosine (Adenocard) Confirm Administered Dose 36 mg .ROUTE .STK-MED ONE Stop: 12/31/18 08:22 Last Admin: 12/31/18 08:58 Dose: Not Given Adenosine (Adenocard) 12 mg IVPUSH NOW ONE Stop: 12/31/18 08:16 Last Admin: 12/31/18 08:28 Dose: 12 mg Diltiazem HCl (Cardizem) 10 mg IVPUSH ONETIME STA Stop: 12/31/18 08:32 Last Admin: 12/31/18 08:58 Dose: Not Given Diltiazem HCl (Cardizem) Confirm Administered Dose 50 mg .ROUTE .STK-MED ONE Stop: 12/31/18 08:33 Last Admin: 12/31/18 08:58 Dose: Not Given Enoxaparin Sodium (Lovenox) 40 mg SUBCUT DAILY [facility] Last Admin: 01/01/19 08:06 Dose: 40 mg Enoxaparin Sodium (Lovenox) 40 mg SUBCUT ONETIME ONE Stop: 12/31/18 21:01 Last Admin: 12/31/18 22:04 Dose: 40 mg Flecainide Acetate (Tambocor) 100 mg PO BEDTIME [facility] Last Admin: 12/31/18 22:03 Dose: 100 mg Magnesium Sulfate 4 gm/ Premix 100 mls @ 25 mls/hr IV ONETIME ONE Stop: 01/01/19 12:14 Last Admin: 01/01/19 08:28 Dose: 25 mls/hr Magnesium Sulfate (Pharmacy To Dose - Magnesium Replacement) 0 dose .XX ASDIRECTED PRN PRN Reason: RX TO [place] LEVELS Metoprolol Succinate (Toprol Xl) 100 mg PO BID [facility] Last Admin: 01/01/19 08:06 Dose: 100 mg Metoprolol Succinate (Toprol Xl) 100 mg PO ONETIME ONE Stop: 01/01/19 15:01 Last Admin: 01/01/19 14:55 Dose: 100 mg Potassium Chloride (Pharmacy To Dose - Potassium Replacement) 0 dose .XX ASDIRECTED PRN PRN Reason: RX TO WATCH K LEVELS Potassium Chloride (Klor-Con M20) 40 meq PO Q4H [facility] Stop: 12/31/18 17:01 Last Admin: 12/31/18 17:20 Dose: 40 meq Temazepam (Restoril) 15 mg PO BEDTIME PRN PRN Reason: Sleep - My Orders Last 24 Hours: My Active Orders 01/01/19 10:29 EKG 12 Lead [EKG Documentation Completion] [RC] URGENT 01/01/19 10:45 Flecainide [Tambocor] 100 mg PO BID 01/01/19 11:35 EKG Documentation Completion [RC] URGENT 01/01/19 16:00 Enoxaparin [Lovenox] 120 mg SUBCUT Q12H 01/01/19 18:00 EKG Documentation Completion [RC] ROUTINE 01/01/19 21:00 chlordiazePOXIDE [Librium] 25 mg PO TID 01/02/19 05:00 TROPONIN I [CHEM] Routine 01/02/19 12:00 Metoprolol Succinate [Toprol XL] 200 mg PO Q24H - Plan Plan:: Assessment/Plan: Acute: Afib/flutter w/ RVR * Acute on Chronic * Diagnosed w/ Afib in Aug 2018 in [place], seen here in September: * 09/09/2018: c/o Tachycardia--> EKG showed Aflutter w/ 2:1 conduction 134 bpm. Cardizem IV push and drip--> converted to a NSR and D/C'd * 09/10/2018: c/o HR 130s, O2 85% RA--> EKG showed paroxysmal ATach. Cardizem IV push--> converted to Aflutter w/ variable conduction. Admitted to ICU. Metoprolol given and D/C'd. * Both visits did not c/o CP, lightheadedness, weakness or dyspnea. * Today 12/31/18: * Was working out at home and felt palpitations, had vomiting and diaphoresis * EMS EKG showed SVT at 196 bpm * EKG in ED showed narrow complex tachycardia at 201 bpm * Adenosine given in ED--> persistent regular rhythm at 108 bpm, most likely Aflutter with 3:[address] depressions persist. * Cardizem drip started in ED * CXR shows nothing acute * TSH, T4 WNL * Continue at home Flecainide and Metoprolol BID * Lovenox, Metoprolol PRN * F/U with vp of digital marketing, Dr. Le in [place] Elevated Troponin * Likely 2/2 cardiac ischemia from above * Denies CP, diaphoresis * Does have risk factors for CAD (HTN, HLD, Former smoker- 1ppd x 42 years, Quit mid-2016) * 0.107--> 0.629--> 0.823 * Stress test in AM * EKG * Serial troponins Prediabetic * No h/o DM2 per pt * Glucose elevated 185 in ED * A1C 6.1 * Diabetic Education * Control w/ diet and exercise Hypokalemia * K 3.4 * Monitor and Replenish PRN Chronic: HTN Arrhythmia (Paroxysmal Atach vs paroxysmal Afib vs Aflutter)--> on Flecainide and Metoprolol; continue HLD * Lipid panel pending CLEMENCIA w/ CPAP GERD OA Plan: Admit to ICU Continue some home medications; orders as above Routine AM Labs Heart Healthy/Consistent Carb diet DVT/GI Prophylaxis Code status: Full Code; PCP: Kwasi Leiva PA-C
[2019-01-01] MEDS: Terazosin 1 MG Cap PO SCH ×2 (18:43→21:15)
--- NOTE | 2019-01-01 20:43 | PCM.PN ---
- General Info Date of Service: 01/01/19 Admission Dx/Problem (Free Text): Admission Diagnosis/Problem Admission Diagnosis/Problem Atrial fibrillation and flutter Functional Status: Reports: Pain Controlled, Tolerating Diet, Ambulating, Urinating - Review of Systems General: Reports: No Symptoms, Other (no diaphoresis). Denies: Fever, Chills HEENT: Reports: No Symptoms Pulmonary: Reports: No Symptoms Cardiovascular: Reports: No Symptoms. Denies: Chest Pain, Palpitations Gastrointestinal: Reports: No Symptoms. Denies: Abdominal Pain, Diarrhea, Nausea, Vomiting Genitourinary: Reports: No Symptoms Musculoskeletal: Reports: No Symptoms. Denies: Shoulder Pain Skin: Reports: No Symptoms Neurological: Reports: No Symptoms Psychiatric: Reports: No Symptoms - Patient Data Vitals - Most Recent: Last Vital Signs Temp 98.2 F 01/01/19 20:00 Pulse 107 H 01/01/19 20:00 Resp 16 01/01/19 20:00 BP 138/90 01/01/19 18:43 Pulse Ox 94 L 01/01/19 20:00 Weight - Most Recent: 258 lb 12.8 oz I&O - Last 24 Hours: Intake & Output 01/01/19 01/01/19 01/01/19 06:59 14:59 22:59 Intake Total 2548 120 3911 Output Total 400 1600 1750 Balance 2148 -1480 2161 Lab Results Last 24 Hours: Laboratory Results - last 24 hr 01/01/19 01/01/19 Range/Units 05:50 16:00 Sodium 138 (136-145) mEq/L Potassium 3.9 (3.5-5.1) mEq/L Chloride 104 (98-107) mEq/L Carbon Dioxide 27 (21-32) mEq/L Anion Gap 10.9 (5-15) BUN 17 (7-18) mg/dL Creatinine 1.0 (0.7-1.3) mg/dL Est Cr Clr Drug Dosing 71.78 mL/min Estimated GFR (MDRD) > 60 (>60) mL/min BUN/Creatinine Ratio 17.0 (14-18) Glucose 115 H (74-106) mg/dL Calcium 8.3 L (8.5-10.1) mg/dL Magnesium 1.5 L (1.8-2.4) mg/dl CK-MB (CK-2) 1.5 (0-3.6) ng/ml Troponin I 0.360 H* 0.265 H* (0.00-0.056) ng/mL Triglycerides 370 H (<150) mg/dL Cholesterol 141 (<200) mg/dL LDL Cholesterol Direct 74 (<100) mg/dL HDL Cholesterol 29.0 L (40-59) mg/dL Med Orders - Current: Current Medications Acetaminophen (Tylenol) 650 mg PO Q4H PRN PRN Reason: Pain (Mild 1-3)/fever Hydrocodone Bitart/Acetaminophen ([place] 325-5 Mg) 1 tab PO Q4H PRN PRN Reason: Pain (moderate 4-6) Albuterol/Ipratropium (Duoneb 3.0-0.5 Mg/3 Ml) 3 ml NEB Q4H PRN PRN Reason: Shortness Of Breath/wheezing Aspirin (Halfprin) 81 mg PO BEDTIME [facility] Last Admin: 12/31/18 22:03 Dose: 81 mg Bisacodyl (Dulcolax) 5 mg PO DAILY PRN PRN Reason: Constipation Calcium Carbonate/Glycine (Calcium Carbonate) 600 mg PO DAILY [facility] Last Admin: 01/01/19 08:07 Dose: 600 mg Docusate Sodium (Colace) 100 mg PO BID PRN PRN Reason: Constipation Enoxaparin Sodium (Lovenox) 120 mg SUBCUT Q12H [facility] Last Admin: 01/01/19 16:17 Dose: 120 mg Fenofibrate (Tricor) 145 mg PO DAILY [facility] Last Admin: 01/01/19 08:07 Dose: 145 mg Flecainide Acetate (Tambocor) 100 mg PO BID [facility] Last Admin: 01/01/19 11:47 Dose: 100 mg Hydralazine HCl (Apresoline) 20 mg IVPUSH Q4H PRN PRN Reason: Hypertension Last Admin: 01/01/19 13:49 Dose: 20 mg Hydrochlorothiazide (Hydrochlorothiazide) 12.5 mg PO DAILY [facility] Last Admin: 01/01/19 08:06 Dose: 12.5 mg Hydromorphone HCl (Dilaudid) 0.25 mg IVPUSH Q2H PRN PRN Reason: Pain (severe 7-10) Diltiazem HCl 125 mg/ Sodium (Chloride) 125 mls @ 10 mls/hr IV TITRATE [facility]; Protocol Last Admin: 12/31/18 09:05 Dose: 10 mg/hr, 10 mls/hr Sodium Chloride (Normal Saline) 1,000 mls @ 100 mls/hr IV ASDIRECTED [facility] Last Admin: 01/01/19 18:48 Dose: 100 mls/hr Lisinopril (Prinivil) 40 mg PO DAILY [facility] Last Admin: 01/01/19 08:07 Dose: 40 mg Lorazepam (Ativan) 1 mg IV Q6H PRN PRN Reason: Anxiety Last Admin: 01/01/19 04:00 Dose: 1 mg Metoprolol Succinate (Toprol Xl) 200 mg PO Q24H [facility] Metoprolol Tartrate (Lopressor) 5 mg IVPUSH Q4H PRN PRN Reason: Tachycardia Last Admin: 01/01/19 03:18 Dose: 5 mg Multivitamins (Thera) 1 each PO DAILY [facility] Last Admin: 01/01/19 08:07 Dose: 1 each Ondansetron HCl (Zofran) 4 mg IV Q6H PRN PRN Reason: Nausea/Vomiting Polyethylene Glycol (Miralax) 17 gm PO DAILY PRN PRN Reason: Constipation Rosuvastatin Calcium (Crestor) 20 mg PO DAILY [facility] Last Admin: 01/01/19 08:07 Dose: 20 mg Senna/Docusate Sodium (Senna Plus) 1 tab PO BID PRN PRN Reason: Constipation Temazepam (Restoril) 7.5 mg PO BEDTIME PRN PRN Reason: Sleep Last Admin: 12/31/18 22:03 Dose: 7.5 mg Terazosin HCl (Hytrin) 1 mg PO BID [facility] Last Admin: 01/01/19 18:43 Dose: 1 mg Discontinued Medications Adenosine (Adenocard) Confirm Administered Dose 36 mg .ROUTE .STK-MED ONE Stop: 12/31/18 08:22 Last Admin: 12/31/18 08:58 Dose: Not Given Adenosine (Adenocard) 12 mg IVPUSH NOW ONE Stop: 12/31/18 08:16 Last Admin: 12/31/18 08:28 Dose: 12 mg Diltiazem HCl (Cardizem) 10 mg IVPUSH ONETIME STA Stop: 12/31/18 08:32 Last Admin: 12/31/18 08:58 Dose: Not Given Diltiazem HCl (Cardizem) Confirm Administered Dose 50 mg .ROUTE .STK-MED ONE Stop: 12/31/18 08:33 Last Admin: 12/31/18 08:58 Dose: Not Given Enoxaparin Sodium (Lovenox) 40 mg SUBCUT DAILY [facility] Last Admin: 01/01/19 08:06 Dose: 40 mg Enoxaparin Sodium (Lovenox) 40 mg SUBCUT ONETIME ONE Stop: 12/31/18 21:01 Last Admin: 12/31/18 22:04 Dose: 40 mg Flecainide Acetate (Tambocor) 100 mg PO BEDTIME [facility] Last Admin: 12/31/18 22:03 Dose: 100 mg Magnesium Sulfate 4 gm/ Premix 100 mls @ 25 mls/hr IV ONETIME ONE Stop: 01/01/19 12:14 Last Admin: 01/01/19 08:28 Dose: 25 mls/hr Magnesium Sulfate (Pharmacy To Dose - Magnesium Replacement) 0 dose .XX ASDIRECTED PRN PRN Reason: RX TO [place] LEVELS Metoprolol Succinate (Toprol Xl) 100 mg PO BID [facility] Last Admin: 01/01/19 08:06 Dose: 100 mg Metoprolol Succinate (Toprol Xl) 100 mg PO ONETIME ONE Stop: 01/01/19 15:01 Last Admin: 01/01/19 14:55 Dose: 100 mg Potassium Chloride (Pharmacy To Dose - Potassium Replacement) 0 dose .XX ASDIRECTED PRN PRN Reason: RX TO WATCH K LEVELS Potassium Chloride (Klor-Con M20) 40 meq PO Q4H [facility] Stop: 12/31/18 17:01 Last Admin: 12/31/18 17:20 Dose: 40 meq Temazepam (Restoril) 15 mg PO BEDTIME PRN PRN Reason: Sleep - Exam Quality Assessment: DVT Prophylaxis General: Alert, Oriented, Cooperative, No Acute Distress HEENT: Pupils Equal, Pupils Reactive, EOMI, Mucous Membr. Moist/[place] Neck: Supple Lungs: Clear to Auscultation, Normal Respiratory Effort Cardiovascular: Regular Rhythm, Tachycardia GI/Abdominal Exam: Normal Bowel Sounds, Soft, Non-Tender, No Organomegaly, No Distention, No Abnormal Bruit, No Mass, Pelvis Stable (Male) Exam: Deferred Back Exam: Normal Inspection Extremities: Normal Inspection, Normal Range of Motion, Non-Tender, No Pedal Edema, Normal Capillary Refill Peripheral Pulses: 3+: Posterior Tibial (L), Posterior Tibial (R), Dorsalis Pedis (L), Dorsalis Pedis (R) Skin: Warm, Dry, Intact Neurological: No New Focal Deficit Psy/Mental Status: Alert, Normal Affect, Normal Mood - Problem List & Annotations (1) Acute hyperglycemia SNOMED Code(s): 656362913 Code(s): R73.9 - HYPERGLYCEMIA, UNSPECIFIED Status: Acute Priority: High Current Visit: Yes (2) Atrial fibrillation and flutter SNOMED Code(s): 858461225 Code(s): I48.91 - UNSPECIFIED ATRIAL FIBRILLATION; I48.92 - UNSPECIFIED ATRIAL FLUTTER Status: Acute Priority: High Current Visit: Yes (3) Elevated troponin I level SNOMED Code(s): 779015528 Code(s): R74.8 - ABNORMAL LEVELS OF OTHER SERUM ENZYMES Status: Acute Priority: High Current Visit: Yes - Problem List Review Problem List Initiated/Reviewed/Updated: Yes - My Orders Last 24 Hours: My Active Orders 12/31/18 21:00 Aspirin [Halfprin] 81 mg PO BEDTIME 01/01/19 05:11 ECG Stress Exercise [OM.PC] AM 01/01/19 09:00 Calcium Carbonate 600 mg PO DAILY Multivitamins,Therapeutic [Thera] 1 each PO DAILY - Plan Plan:: Assessment/Plan: Acute: Afib/flutter w/ RVR * Acute on Chronic * Diagnosed w/ Afib in Aug 2018 in [place], seen here in November: * 09/09/2018: c/o Tachycardia--> EKG showed Aflutter w/ 2:1 conduction 134 bpm. Cardizem IV push and drip--> converted to a NSR and D/C'd * 09/10/2018: c/o HR 130s, O2 85% RA--> EKG showed paroxysmal ATach. Cardizem IV push--> converted to Aflutter w/ variable conduction. Admitted to ICU. Metoprolol given and D/C'd. * Both visits did not c/o CP, lightheadedness, weakness or dyspnea. * Today 12/31/18: * Was working out at home and felt palpitations, had vomiting and diaphoresis * EMS EKG showed SVT at 196 bpm * EKG in ED showed narrow complex tachycardia at 201 bpm * Adenosine given in ED--> persistent regular rhythm at 108 bpm, most likely Aflutter with 3:[address] depressions persist. * Cardizem drip started in ED * CXR shows nothing acute * TSH, T4 WNL * Continue at home Flecainide and Metoprolol BID * Lovenox, Metoprolol PRN * F/U with trust administrator, Dr. Le in [place] Elevated Troponin, Improving * Likely 2/2 cardiac ischemia from above * Denies CP, diaphoresis * Does have risk factors for CAD (HTN, HLD, Former smoker- 1ppd x 42 years, Quit mid-2016) * 0.107--> 0.629--> 0.823--> 0.360--> 0.265 * Stress test in AM * EKG * Serial troponins * Contact Office Assistance Dr. Le to decide how to proceed- heart cath? Prediabetic * No h/o DM2 per pt * Glucose elevated 185 in ED * A1C 6.1 * Diabetic Education * Control w/ diet and exercise Resolved: Hypokalemia * K 3.4--> 3.9 * Monitor and Replenish PRN Chronic: HTN Arrhythmia (Paroxysmal Atach vs paroxysmal Afib vs Aflutter)--> on Flecainide and Metoprolol; continue HLD Lipid panel pending CLEMENCIA w/ CPAP GERD OA Plan: Admit to ICU Continue some home medications; orders as above Routine AM Labs Heart Healthy/Consistent Carb diet DVT/GI Prophylaxis Code status: Full Code; PCP: Kwasi Leiva PA-C
[2019-01-01] MEDS ORDERED: chlordiazePOXIDE 25 MG Cap PO SCH (21:00)
[2019-01-01] MEDS: Aspirin 81 MG Tab.EC PO SCH (21:15)
[2019-01-01] MEDS: Temazepam 7.5 MG Cap PO PRN (21:53)
[2019-01-02] MEDS: Sodium Chloride 0.9% 1,000 ML IV SCH ×2 (04:44→14:01)
[2019-01-02] MEDS: Enoxaparin 120 MG/0.8 ML Syringe SUBCUT SCH ×2 (04:44→15:12)
[2019-01-02] MEDS: hydrALAZINE 20 MG/ML SDV IVPUSH PRN (05:58)
[2019-01-02] MEDS: Flecainide 50 MG Tab PO SCH (08:01)
[2019-01-02] MEDS: Rosuvastatin 10 MG Tab PO SCH (08:02)
[2019-01-02] MEDS: Terazosin 1 MG Cap PO SCH (08:02)
[2019-01-02] MEDS: Hydrochlorothiazide 12.5 MG Cap PO SCH (08:03)
[2019-01-02] MEDS: Multivitamins,Therapeutic Tab PO SCH (08:03)
[2019-01-02] MEDS: Lisinopril 20 MG Tab PO SCH (08:04)
[2019-01-02] MEDS: Calcium Carbonate 600 MG Tab PO SCH (08:04)
[2019-01-02] MEDS: Fenofibrate Nanocrystallized 145 MG Tab PO SCH (08:04)
[2019-01-02] MEDS: Metoprolol Succinate 50 MG Tab.ER PO SCH ×2 (11:54→17:03)
[2019-01-02] MEDS ORDERED: Metoprolol Succinate 50 MG Tab.ER PO SCH (12:00)
[2019-01-02] MEDS ORDERED: Adenosine 12 MG/4 ML SDV ONE (13:17)
[2019-01-02] MEDS ORDERED: Adenosine 6 MG/2 ML SDV IVPUSH ONE (13:20)
[2019-01-02] MEDS ORDERED: Amiodarone In Dextrose,Iso-Osm 150 MG in Premix Bag 1 BAG IV ONE ×2 (13:20)
[2019-01-02] MEDS ORDERED: LORazepam 2 MG/ML SDV IVPUSH ONE (13:23)
[2019-01-02] MEDS: LORazepam 2 MG/ML SDV IV PRN (13:25)
[2019-01-02] MEDS: Metoprolol Tartrate 5 MG/5 ML SDV IVPUSH PRN (13:28)
[2019-01-02] MEDS ORDERED: Diltiazem 125 MG in Sodium Chloride 0.9% 100 ML IV SCH (13:30)
[2019-01-02] MEDS ORDERED: Amiodarone 150 MG/3 ML SDV IVPUSH ONE (13:30)
[2019-01-02] MEDS ORDERED: Nitroglycerin 0.4 MG Tab.SL SL PRN (14:41)
[2019-01-02] MEDS ORDERED: Clopidogrel 75 MG Tab PO ONE (15:00)
[2019-01-02] MEDS ORDERED: Nitroglycerin 2% Oint 1 GM UD Packet TOP SCH (15:00)
[2019-01-02] MEDS ORDERED: Aspirin 325 MG Tab.EC PO ONE (16:52)
[2019-01-02] MEDS ORDERED: Aspirin 81 MG Tab.Chew PO ONE (16:53)
--- NOTE | 2019-01-02 17:28 | PCM.DCSUM1 ---
<Tiny Kim - Last Filed: 01/02/19 17:44> Discharge Summary - Hospital Course HPI Initial Comments: The patient states that he was exercising at home, beginning around 06:40. Around 07:10, he developed nausea and diaphoresis. He sat down and vomited, which made him feel better, but EMS was called. When EMS arrived, they found the patient to have a rapid regular heartbeat. An ECG was obtained and faxed to us, which appears to demonstrate an SVT at 196 bpm. At no time did the patient experience chest discomfort or lightheadedness. Upon arrival to the ED, the patient's heart rate was 201 bpm, still narrow complex on the ECG. 12 mg of adenosine was given, which slowed the patient's heart rate somewhat, after which it has remained regular at about 115 bpm. The patient states that he feels considerably better than he did. The patient states that he was diagnosed with atrial fibrillation in August 2018, while in [place]. He states that he was given a medicine to slow his heart down, for about 8 hours. He states that he was told that his heart enzyme was mildly elevated. He states that he suffered a second episode in September 2018, here. Review of the medical records finds that the patient was seen in this ED on 09/09/2018, with a complaint of tachycardia. He had no chest discomfort, lightheadedness, weakness or dyspnea. He was found to be in atrial flutter with 2:1 conduction, at 134 bpm. He was given Cardizem IV push and drip, and converted to a normal sinus rhythm and he was then discharged home with no new prescriptions. The patient then returned to this ED the following day, 09/10/2018, with an elevated heart rate in the 130s, and low oxygen saturation of 85%. He again denied having any chest discomfort, lightheadedness, or dyspnea. The ECG appeared to demonstrate paroxysmal atrial tachycardia. He was again given IV Cardizem, converting to atrial flutter with variable conduction, rate controlled. His labs were unremarkable. He was then admitted to the ICU. Additional metoprolol was prescribed, and the patient was discharged home the following day, 09/11/2018. The patient's PCP is Kwasi Leiva. His Resource Agent is Dr. Le. Diagnosis: Stroke: No Modified Jaron Scale: No Symptoms at All Modified Longs Scale Score: 0 - Discharge Data Discharge Date: 01/02/19 (ADMIT 12/31/18) Discharge Disposition: DC/Tfer to Acute Hospital 02 Condition: Stable - Discharge Diagnosis/Problem(s) (1) Acute hyperglycemia SNOMED Code(s): 947449069 ICD Code: R73.9 - HYPERGLYCEMIA, UNSPECIFIED Status: Acute Priority: High (2) Atrial fibrillation and flutter SNOMED Code(s): 376743040 ICD Code: I48.91 - UNSPECIFIED ATRIAL FIBRILLATION; I48.92 - UNSPECIFIED ATRIAL FLUTTER Status: Acute Priority: High (3) Elevated troponin I level SNOMED Code(s): 412718582 ICD Code: R74.8 - ABNORMAL LEVELS OF OTHER SERUM ENZYMES Status: Acute Priority: High - Patient Summary/Data Operative Procedure(s) Performed: none Complications: none Consults: Consultations 12/31/18 12:33 Consult to Case Management/Production Floater [CONS] Routine Consult to Slip Operator [CONS] Routine Labs Pending at D/C: none Recommended Follow-up Testing/Procedures: F/U with hand crown pouncer, Dr. Le Planned Operative Procedure(s) after DC: none unless other hospital deems one necessary Hospital Course: Assessment/Plan: Acute: Afib/flutter w/ RVR * Acute on Chronic * Diagnosed w/ Afib in Aug 2018 in [place], seen here in November: * 09/09/2018: c/o Tachycardia--> EKG showed Aflutter w/ 2:1 conduction 134 bpm. Cardizem IV push and drip--> converted to a NSR and D/C'd * 09/10/2018: c/o HR 130s, O2 85% RA--> EKG showed paroxysmal ATach. Cardizem IV push--> converted to Aflutter w/ variable conduction. Admitted to ICU. Metoprolol given and D/C'd. * Both visits did not c/o CP, lightheadedness, weakness or dyspnea. * Today 12/31/18: * Was working out at home and felt palpitations, had vomiting and diaphoresis * EMS EKG showed SVT at 196 bpm * EKG in ED showed narrow complex tachycardia at 201 bpm * Adenosine given in ED--> persistent regular rhythm at 108 bpm, most likely Aflutter with 3:[address] depressions persist. * Cardizem drip started in ED * CXR shows nothing acute * TSH, T4 WNL * Continue at home Flecainide and Metoprolol BID * Lovenox, Metoprolol PRN * F/U with hand crown pouncer, Dr. Le in [place] Elevated Troponin, Improving * Likely 2/2 cardiac ischemia from above * Denies CP, diaphoresis * Does have risk factors for CAD (HTN, HLD, Former smoker- 1ppd x 42 years, Quit mid-2016) * 0.107--> 0.629--> 0.823--> 0.360--> 0.265--> 0.194 * EKG * Serial troponins * Contact Resource Agent Dr. Le to decide how to proceed- heart cath? * Pt states he does have a stress test January 24 w/ Dr. Le Prediabetic * No h/o DM2 per pt * Glucose elevated 185 in ED * A1C 6.1 * Diabetic Education * Control w/ diet and exercise Resolved: Hypokalemia * K 3.4--> 3.9 * Monitor and Replenish PRN Chronic: HTN Arrhythmia (Paroxysmal Atach vs paroxysmal Afib vs Aflutter)--> on Flecainide and Metoprolol; continue HLD Lipid panel pending CLEMENCIA w/ CPAP GERD OA Plan: Admit to ICU Continue some home medications; orders as above Routine AM Labs Heart Healthy/Consistent Carb diet DVT/GI Prophylaxis Code status: Full Code; PCP: BG Galvan did OK here after being admitted for Afib/flutter w/ RVR and elevated troponin (asymptomatic). He was treated with cardizem and metoprolol with improvement, however today around 1300 he had an episode of SVT in the 190s accompanied by L arm pain. 150 Amiodarone, 1mg Ativan, 5mg Lopressor, Cardizem drip 5mg/hr, Nitro 1g, Lovenox 120mg, Plavix 300mg, 324mg chewable ASA given. Metoprolol 100BID increased to 200BID. Flecanide continued 100 BID. EKG showed narrow complex tachycardia, probable Aflutter. No ST segment elevation noted. On 12/31/[address] depression noted in the ED. He is now in Aflutter HR in the 90s-low 100s. BP 140/100. At this time, it is concerning with his new onset pain and previous elevation of troponin at 0.823 that he could possibly be having an TN. Previous visits for SVT also did not show elevated troponin. Dr. Queen at [facility] was called and given report on the patient and he recommended transfer for possible cardiac angiogram, etc. Dr. Trujillo the hospitalist accepted the pt. He will be transferred today to [facility] for higher level of care. - Patient Instructions Diet: NPO Activity: Rest and Relax Today Driving: Do Not Drive Showering/Bathing: May Shower Notify Provider of: Fever, Increased Pain - Discharge Plan *PRESCRIPTION DRUG MONITORING PROGRAM REVIEWED*: Not Applicable *COPY OF PRESCRIPTION DRUG MONITORING REPORT IN PATIENT HALIE: Not Applicable Home Medications: Home Meds Ascorbic Acid [Vitamin C] 1,000 mg PO DAILY 12/31/18 [History] Aspirin [Halfprin] 81 mg PO BEDTIME 12/31/18 [History] Calcium Carbonate [Calcium] 600 mg PO DAILY 12/31/18 [History] Fenofibrate 145 mg PO DAILY 12/31/18 [History] Flecainide [Tambocor] 100 mg PO BID 12/31/18 [History] Gluc 2KCl/Chondr/Rm Hy/Hy Ac [Glucosamine & Chondroitin Cap] 1 cap PO DAILY [History] Hydrochlorothiazide [Microzide] 12.5 mg PO DAILY 12/31/18 [History] Lisinopril 40 mg PO DAILY 12/31/18 [History] Melatonin 6 mg PO BEDTIME PRN 12/31/18 [History] Metoprolol Succinate 100 mg PO BID 12/31/18 [History] Multivitamin [Multivitamins] 1 cap PO DAILY 12/31/18 [History] [place]-3/DHA/Epa/Fish Oil [[place]-3 Fish Oil Softgel] 520 mg PO DAILY 12/31/18 [ History] Vitamin E 400 units PO DAILY 12/31/18 [History] atorvaSTATin [Lipitor] 80 mg PO DAILY 12/31/18 [History] Diltiazem 125 mg IV TITRATE sdv 01/02/19 [Rx] Flecainide [Tambocor] 100 mg PO BID tablet 01/02/19 [Rx] Metoprolol Succinate [Toprol XL 50mg] 200 mg PO 1200,1800 tab.er 01/02/19 [Rx] Metoprolol Tartrate [Lopressor] 5 mg IVPUSH Q4H PRN vial 01/02/19 [Rx] Nitroglycerin [Nitro-Bid 2%] 1 gm TOP Q8H packet 01/02/19 [Rx] Nitroglycerin [Nitrostat] 0.4 mg SL Q5M PRN tab.sl 01/02/19 [Rx] Ondansetron [Zofran] 4 mg IV Q6H PRN vial 01/02/19 [Rx] Sodium Chloride 0.9% [Normal Saline] 1,000 ml IV ASDIRECTED bag 01/02/19 [Rx] Temazepam [Restoril] 7.5 mg PO BEDTIME PRN cap 01/02/19 [Rx] Terazosin [Hytrin] 1 mg PO BID cap 01/02/19 [Rx] hydrALAZINE [Apresoline] 20 mg IVPUSH Q4H PRN sdv 01/02/19 [Rx] Oxygen Therapy Mode: Room Air Patient Handouts: Heart Attack, [id number], Atrial Fibrillation, [id number] Referrals: Kwasi Leiva PA-C [Primary Care Provider] - Bk Le MD [Ordering Only Provider] - 01/24/19 11:30 am (This appt. is in [place] [facility] time 11:30 stress test and at 1:[address] Le, Please keep appt.) - Discharge Summary/Plan Comment DC Time >30 min.: Yes (40) - General Info Date of Service: 01/02/19 Admission Dx/Problem (Free Text: Admission Diagnosis/Problem Admission Diagnosis/Problem Atrial fibrillation and flutter Subjective Update: In to see Zay. He is sitting up in bed visiting with his son. He states he is no longer having L arm pain s/p Nitro. He did have an episode of SVT in the 190s earlier today around 1300 accompanied by L arm pain. 150 Amiodarone, 1mg Ativan, 5mg Lopressor, Cardizem drip 5mg/hr, Nitro 1g, Lovenox 120mg, Plavix 300mg, 324mg chewable ASA was given. Metoprolol 100BID increased to 200BID. Continue Flecanide 100 BID. EKG showed narrow complex tachycardia, probable Aflutter. No ST segment elevation noted. On 12/31/[address] depression noted in the ED. He is now in Aflutter HR in the 90s-low 100s. BP 140/100. At this time, it is concerning with his new onset pain and previous elevation of troponin at 0.823 that he could possibly be having an TN. Previous episodes of SVT also did not show elevated troponin. Dr. Queen at [facility] was called and given report on the patient and he recommended transfer. Dr. Trujillo the hospitalist accepted the pt. He will be transferred today to [facility] for higher level of care. He may need cardiac cath/angiogram. Functional Status: Reports: Pain Controlled, Tolerating Diet, Ambulating, Urinating - Review of Systems General: Reports: No Symptoms HEENT: Reports: No Symptoms Pulmonary: Reports: No Symptoms Cardiovascular: Reports: No Symptoms Gastrointestinal: Reports: No Symptoms Genitourinary: Reports: No Symptoms Musculoskeletal: Reports: No Symptoms Skin: Reports: No Symptoms Neurological: Reports: No Symptoms Psychiatric: Reports: No Symptoms - Patient Data Vitals - Most Recent: Last Vital Signs Temp 97.4 F 01/02/19 12:00 Pulse 101 H 01/02/19 17:03 Resp 18 01/02/19 12:00 BP 133/103 H 01/02/19 17:03 Pulse Ox 96 01/02/19 12:00 Weight - Most Recent: 116.981 kg I&O - Last 24 hours: Intake & Output 01/02/19 01/02/19 01/02/19 06:59 14:59 22:59 Intake Total 1860 180 Output Total 800 3668 520 Balance 3711 -0529 -600 Lab Results - Last 24 hrs: Laboratory Results - last 24 hr 01/02/19 01/02/19 Range/Units 06:10 06:10 Sodium 140 (136-145) mEq/L Potassium 4.0 (3.5-5.1) mEq/L Chloride 105 (98-107) mEq/L Carbon Dioxide 24 (21-32) mEq/L Anion Gap 15.0 (5-15) BUN 13 (7-18) mg/dL Creatinine 0.9 (0.7-1.3) mg/dL Est Cr Clr Drug Dosing 79.75 mL/min Estimated GFR (MDRD) > 60 (>60) mL/min BUN/Creatinine Ratio 14.4 (14-18) Glucose 104 (74-106) mg/dL Calcium 8.7 (8.5-10.1) mg/dL Magnesium 2.1 (1.8-2.4) mg/dl Troponin I 0.194 H* (0.00-0.056) ng/mL Med Orders - Current: Current Medications Acetaminophen (Tylenol) 650 mg PO Q4H PRN PRN Reason: Pain (Mild 1-3)/fever Hydrocodone Bitart/Acetaminophen ([place] 325-5 Mg) 1 tab PO Q4H PRN PRN Reason: Pain (moderate 4-6) Albuterol/Ipratropium (Duoneb 3.0-0.5 Mg/3 Ml) 3 ml NEB Q4H PRN PRN Reason: Shortness Of Breath/wheezing Aspirin (Halfprin) 81 mg PO BEDTIME [facility] Last Admin: 01/01/19 21:15 Dose: 81 mg Bisacodyl (Dulcolax) 5 mg PO DAILY PRN PRN Reason: Constipation Calcium Carbonate/Glycine (Calcium Carbonate) 600 mg PO DAILY [facility] Last Admin: 01/02/19 08:04 Dose: 600 mg Docusate Sodium (Colace) 100 mg PO BID PRN PRN Reason: Constipation Enoxaparin Sodium (Lovenox) 120 mg SUBCUT Q12H [facility] Last Admin: 01/02/19 15:12 Dose: 120 mg Fenofibrate (Tricor) 145 mg PO DAILY [facility] Last Admin: 01/02/19 08:04 Dose: 145 mg Flecainide Acetate (Tambocor) 100 mg PO BID [facility] Last Admin: 01/02/19 08:01 Dose: 100 mg Hydralazine HCl (Apresoline) 20 mg IVPUSH Q4H PRN PRN Reason: Hypertension Last Admin: 01/02/19 05:58 Dose: 20 mg Hydrochlorothiazide (Hydrochlorothiazide) 12.5 mg PO DAILY [facility] Last Admin: 01/02/19 08:03 Dose: 12.5 mg Hydromorphone HCl (Dilaudid) 0.25 mg IVPUSH Q2H PRN PRN Reason: Pain (severe 7-10) Sodium Chloride (Normal Saline) 1,000 mls @ 100 mls/hr IV ASDIRECTED [facility] Last Admin: 01/02/19 14:01 Dose: 100 mls/hr Diltiazem HCl 125 mg/ Sodium (Chloride) 125 mls @ 5 mls/hr IV TITRATE [facility]; Protocol Last Admin: 01/02/19 13:45 Dose: 5 mg/hr, 5 mls/hr Lisinopril (Prinivil) 40 mg PO DAILY [facility] Last Admin: 01/02/19 08:04 Dose: 40 mg Lorazepam (Ativan) 1 mg IV Q6H PRN PRN Reason: Anxiety Last Admin: 01/02/19 13:25 Dose: 1 mg Metoprolol Succinate (Toprol Xl) 200 mg PO 1200,1800 [facility] Last Admin: 01/02/19 17:03 Dose: 200 mg Metoprolol Tartrate (Lopressor) 5 mg IVPUSH Q4H PRN PRN Reason: Tachycardia Last Admin: 01/02/19 13:28 Dose: 5 mg Multivitamins (Thera) 1 each PO DAILY [facility] Last Admin: 01/02/19 08:03 Dose: 1 each Nitroglycerin (Nitrostat) 0.4 mg SL Q5M PRN PRN Reason: Chest Pain Nitroglycerin (Nitro-Bid 2%) 1 gm TOP Q8H [facility] Last Admin: 01/02/19 15:06 Dose: 1 gm Ondansetron HCl (Zofran) 4 mg IV Q6H PRN PRN Reason: Nausea/Vomiting Polyethylene Glycol (Miralax) 17 gm PO DAILY PRN PRN Reason: Constipation Rosuvastatin Calcium (Crestor) 20 mg PO DAILY [facility] Last Admin: 01/02/19 08:02 Dose: 20 mg Senna/Docusate Sodium (Senna Plus) 1 tab PO BID PRN PRN Reason: Constipation Temazepam (Restoril) 7.5 mg PO BEDTIME PRN PRN Reason: Sleep Last Admin: 01/01/19 21:53 Dose: 7.5 mg Terazosin HCl (Hytrin) 1 mg PO BID [facility] Last Admin: 01/02/19 08:02 Dose: 1 mg Discontinued Medications Adenosine (Adenocard) Confirm Administered Dose 36 mg .ROUTE .[facility]-MED ONE Stop: 12/31/18 08:22 Last Admin: 12/31/18 08:58 Dose: Not Given Adenosine (Adenocard) 12 mg IVPUSH NOW ONE Stop: 12/31/18 08:16 Last Admin: 12/31/18 08:28 Dose: 12 mg Adenosine (Adenocard) Confirm Administered Dose 12 mg .ROUTE .[facility]-MED ONE Stop: 01/02/19 13:18 Last Admin: 01/02/19 13:27 Dose: Not Given Adenosine (Adenocard) 12 mg IVPUSH NOW ONE Stop: 01/02/19 13:21 Last Admin: 01/02/19 13:30 Dose: Not Given Amiodarone HCl (Cordarone) 150 mg IVPUSH ONETIME ONE Stop: 01/02/19 13:31 Last Admin: 01/02/19 13:20 Dose: 150 mg Aspirin (Ecotrin) 325 mg PO ONETIME ONE Stop: 01/02/19 16:53 Aspirin (Aspirin) 324 mg PO ONETIME ONE Stop: 01/02/19 16:54 Last Admin: 01/02/19 17:03 Dose: 324 mg Clopidogrel Bisulfate (Plavix) 300 mg PO ONETIME ONE Stop: 01/02/19 15:01 Last Admin: 01/02/19 15:08 Dose: 300 mg Diltiazem HCl (Cardizem) 10 mg IVPUSH ONETIME STA Stop: 12/31/18 08:32 Last Admin: 12/31/18 08:58 Dose: Not Given Diltiazem HCl (Cardizem) Confirm Administered Dose 50 mg .ROUTE .STK-MED ONE Stop: 12/31/18 08:33 Last Admin: 12/31/18 08:58 Dose: Not Given Enoxaparin Sodium (Lovenox) 40 mg SUBCUT DAILY [facility] Last Admin: 01/01/19 08:06 Dose: 40 mg Enoxaparin Sodium (Lovenox) 40 mg SUBCUT ONETIME ONE Stop: 12/31/18 21:01 Last Admin: 12/31/18 22:04 Dose: 40 mg Flecainide Acetate (Tambocor) 100 mg PO BEDTIME [facility] Last Admin: 12/31/18 22:03 Dose: 100 mg Diltiazem HCl 125 mg/ Sodium (Chloride) 125 mls @ 10 mls/hr IV TITRATE [facility]; Protocol Last Admin: 12/31/18 09:05 Dose: 10 mg/hr, 10 mls/hr Magnesium Sulfate 4 gm/ Premix 100 mls @ 25 mls/hr IV ONETIME ONE Stop: 01/01/19 12:14 Last Admin: 01/01/19 08:28 Dose: 25 mls/hr Amiodarone HCl/Dextrose 150 mg (/ Premix) 100 mls @ 582.524 mls/hr IV .BOLUS ONE Stop: 01/02/19 13:30 Last Admin: 01/02/19 13:39 Dose: Not Given Lorazepam (Ativan) 1 mg IVPUSH STAT ONE Stop: 01/02/19 13:24 Last Admin: 01/02/19 13:28 Dose: Not Given Magnesium Sulfate (Pharmacy To Dose - Magnesium Replacement) 0 dose .XX ASDIRECTED PRN PRN Reason: RX TO [place]ACH MAG LEVELS Metoprolol Succinate (Toprol Xl) 100 mg PO BID [facility] Last Admin: 01/01/19 08:06 Dose: 100 mg Metoprolol Succinate (Toprol Xl) 100 mg PO ONETIME ONE Stop: 01/01/19 15:01 Last Admin: 01/01/19 14:55 Dose: 100 mg Metoprolol Succinate (Toprol Xl) 200 mg PO Q24H [facility] Potassium Chloride (Pharmacy To Dose - Potassium Replacement) 0 dose .XX ASDIRECTED PRN PRN Reason: RX TO WATCH K LEVELS Potassium Chloride (Klor-Con M20) 40 meq PO Q4H [facility] Stop: 12/31/18 17:01 Last Admin: 12/31/18 17:20 Dose: 40 meq Temazepam (Restoril) 15 mg PO BEDTIME PRN PRN Reason: Sleep - Exam Quality Assessment: Reports: DVT Prophylaxis General: Reports: Alert, Oriented, Cooperative, No Acute Distress HEENT: Reports: Pupils Equal, Pupils Reactive, EOMI, Mucous Membr. Moist/[place] Neck: Reports: Supple Lungs: Reports: Clear to Auscultation, Normal Respiratory Effort Cardiovascular: Reports: Irregular Rhythm, Tachycardia GI/Abdominal Exam: Normal Bowel Sounds, Soft, Non-Tender, No Organomegaly, No Distention, No Abnormal Bruit, No Mass, Pelvis Stable (Male) Exam: Deferred Rectal (Males) Exam: Deferred Back Exam: Reports: Normal Inspection Extremities: Normal Inspection, Normal Range of Motion, Non-Tender, No Pedal Edema, Normal Capillary Refill Skin: Reports: Warm, Dry, Intact Neurological: Reports: No New Focal Deficit Psy/Mental Status: Reports: Alert, Normal Affect, Normal Mood <Nkechi Henderson - Last Filed: 01/03/19 16:18> Discharge Summary - Hospital Course Free Text/Narrative:: Initial approach was per provider of record to risk stratify, however Tn was > normal limit; stress test was cancelled. Adjustment of meds including BB/ antiarrhythmic and anticoagulation followed. [facility] accepted patient for transfer as noted above. See discharge summary, ACS treatment initiated during hospital stay. NCT preceded recent episode of LUE discomfort dismissed by patient as "old man pain. " He has had similar discomfort prior to admission. HEART score >/= 7. Arrangement for transfer are as documented. - Patient Summary/Data Consults: Consultations 12/31/18 12:33 Consult to Case Management/Production Floater [CONS] Routine Consult to Slip Operator [CONS] Routine - Patient Data Vitals - Most Recent: Last Vital Signs Temp 36.3 C 01/02/19 12:00 Pulse 101 H 01/02/19 17:03 Resp 18 01/02/19 12:00 BP 155/100 H 01/02/19 17:17 Pulse Ox 98 01/02/19 17:13 Med Orders - Current: Current Medications Discontinued Medications Acetaminophen (Tylenol) 650 mg PO Q4H PRN PRN Reason: Pain (Mild 1-3)/fever Hydrocodone Bitart/Acetaminophen ([place] 325-5 Mg) 1 tab PO Q4H PRN PRN Reason: Pain (moderate 4-6) Adenosine (Adenocard) Confirm Administered Dose 36 mg .ROUTE .STK-MED ONE Stop: 12/31/18 08:22 Last Admin: 12/31/18 08:58 Dose: Not Given Adenosine (Adenocard) 12 mg IVPUSH NOW ONE Stop: 12/31/18 08:16 Last Admin: 12/31/18 08:28 Dose: 12 mg Adenosine (Adenocard) Confirm Administered Dose 12 mg .ROUTE .STK-MED ONE Stop: 01/02/19 13:18 Last Admin: 01/02/19 13:27 Dose: Not Given Adenosine (Adenocard) 12 mg IVPUSH NOW ONE Stop: 01/02/19 13:21 Last Admin: 02/28/19 13:30 Dose: Not Given Albuterol/Ipratropium (Duoneb 3.0-0.5 Mg/3 Ml) 3 ml NEB Q4H PRN PRN Reason: Shortness Of Breath/wheezing Amiodarone HCl (Cordarone) 150 mg IVPUSH ONETIME ONE Stop: 01/02/19 13:31 Last Admin: 01/02/19 13:20 Dose: 150 mg Aspirin (Halfprin) 81 mg PO BEDTIME [facility] Last Admin: 01/01/19 21:15 Dose: 81 mg Aspirin (Ecotrin) 325 mg PO ONETIME ONE Stop: 01/02/19 16:53 Last Admin: 01/02/19 18:22 Dose: Not Given Aspirin (Aspirin) 324 mg PO ONETIME ONE Stop: 01/02/19 16:54 Last Admin: 01/02/19 17:03 Dose: 324 mg Bisacodyl (Dulcolax) 5 mg PO DAILY PRN PRN Reason: Constipation Calcium Carbonate/Glycine (Calcium Carbonate) 600 mg PO DAILY [facility] Last Admin: 01/02/19 08:04 Dose: 600 mg Clopidogrel Bisulfate (Plavix) 300 mg PO ONETIME ONE Stop: 01/02/19 15:01 Last Admin: 01/02/19 15:08 Dose: 300 mg Diltiazem HCl (Cardizem) 10 mg IVPUSH ONETIME STA Stop: 12/31/18 08:32 Last Admin: 12/31/18 08:58 Dose: Not Given Diltiazem HCl (Cardizem) Confirm Administered Dose 50 mg .ROUTE .STK-MED ONE Stop: 12/31/18 08:33 Last Admin: 12/31/18 08:58 Dose: Not Given Docusate Sodium (Colace) 100 mg PO BID PRN PRN Reason: Constipation Enoxaparin Sodium (Lovenox) 40 mg SUBCUT DAILY [facility] Last Admin: 01/01/19 08:06 Dose: 40 mg Enoxaparin Sodium (Lovenox) 40 mg SUBCUT ONETIME ONE Stop: 12/31/18 21:01 Last Admin: 12/31/18 22:04 Dose: 40 mg Enoxaparin Sodium (Lovenox) 120 mg SUBCUT Q12H [facility] Last Admin: 01/02/19 15:12 Dose: 120 mg Fenofibrate (Tricor) 145 mg PO DAILY [facility] Last Admin: 01/02/19 08:04 Dose: 145 mg Flecainide Acetate (Tambocor) 100 mg PO BEDTIME [facility] Last Admin: 12/31/18 22:03 Dose: 100 mg Flecainide Acetate (Tambocor) 100 mg PO BID [facility] Last Admin: 01/02/19 08:01 Dose: 100 mg Hydralazine HCl (Apresoline) 20 mg IVPUSH Q4H PRN PRN Reason: Hypertension Last Admin: 01/02/19 05:58 Dose: 20 mg Hydrochlorothiazide (Hydrochlorothiazide) 12.5 mg PO DAILY [facility] Last Admin: 01/02/19 08:03 Dose: 12.5 mg Hydromorphone HCl (Dilaudid) 0.25 mg IVPUSH Q2H PRN PRN Reason: Pain (severe 7-10) Diltiazem HCl 125 mg/ Sodium (Chloride) 125 mls @ 10 mls/hr IV TITRATE [facility]; Protocol Last Admin: 12/31/18 09:05 Dose: 10 mg/hr, 10 mls/hr Sodium Chloride (Normal Saline) 1,000 mls @ 100 mls/hr IV ASDIRECTED [facility] Last Admin: 01/02/19 14:01 Dose: 100 mls/hr Magnesium Sulfate 4 gm/ Premix 100 mls @ 25 mls/hr IV ONETIME ONE Stop: 01/01/19 12:14 Last Admin: 01/01/19 08:28 Dose: 25 mls/hr Amiodarone HCl/Dextrose 150 mg (/ Premix) 100 mls @ 582.524 mls/hr IV .BOLUS ONE Stop: 01/02/19 13:30 Last Admin: 01/02/19 13:39 Dose: Not Given Diltiazem HCl 125 mg/ Sodium (Chloride) 125 mls @ 5 mls/hr IV TITRATE [facility]; Protocol Last Admin: 01/02/19 13:45 Dose: 5 mg/hr, 5 mls/hr Lisinopril (Prinivil) 40 mg PO DAILY [facility] Last Admin: 01/02/19 08:04 Dose: 40 mg Lorazepam (Ativan) 1 mg IV Q6H PRN PRN Reason: Anxiety Last Admin: 01/02/19 13:25 Dose: 1 mg Lorazepam (Ativan) 1 mg IVPUSH STAT ONE Stop: 01/02/19 13:24 Last Admin: 01/02/19 13:28 Dose: Not Given Magnesium Sulfate (Pharmacy To Dose - Magnesium Replacement) 0 dose .XX ASDIRECTED PRN PRN Reason: RX TO [place] MAG LEVELS Metoprolol Succinate (Toprol Xl) 100 mg PO BID [facility] Last Admin: 01/01/19 08:06 Dose: 100 mg Metoprolol Succinate (Toprol Xl) 100 mg PO ONETIME ONE Stop: 01/01/19 15:01 Last Admin: 01/01/19 14:55 Dose: 100 mg Metoprolol Succinate (Toprol Xl) 200 mg PO Q24H [facility] Metoprolol Succinate (Toprol Xl) 200 mg PO 1200,1800 [facility] Last Admin: 01/02/19 17:03 Dose: 200 mg Metoprolol Tartrate (Lopressor) 5 mg IVPUSH Q4H PRN PRN Reason: Tachycardia Last Admin: 01/02/19 13:28 Dose: 5 mg Multivitamins (Thera) 1 each PO DAILY [facility] Last Admin: 01/02/19 08:03 Dose: 1 each Nitroglycerin (Nitrostat) 0.4 mg SL Q5M PRN PRN Reason: Chest Pain Nitroglycerin (Nitro-Bid 2%) 1 gm TOP Q8H [facility] Last Admin: 01/02/19 15:06 Dose: 1 gm Ondansetron HCl (Zofran) 4 mg IV Q6H PRN PRN Reason: Nausea/Vomiting Polyethylene Glycol (Miralax) 17 gm PO DAILY PRN PRN Reason: Constipation Potassium Chloride (Pharmacy To Dose - Potassium Replacement) 0 dose .XX ASDIRECTED PRN PRN Reason: RX TO WATCH K LEVELS Potassium Chloride (Klor-Con M20) 40 meq PO Q4H [facility] Stop: 12/31/18 17:01 Last Admin: 12/31/18 17:20 Dose: 40 meq Rosuvastatin Calcium (Crestor) 20 mg PO DAILY [facility] Last Admin: 01/02/19 08:02 Dose: 20 mg Senna/Docusate Sodium (Senna Plus) 1 tab PO BID PRN PRN Reason: Constipation Temazepam (Restoril) 15 mg PO BEDTIME PRN PRN Reason: Sleep Temazepam (Restoril) 7.5 mg PO BEDTIME PRN PRN Reason: Sleep Last Admin: 01/01/19 21:53 Dose: 7.5 mg Terazosin HCl (Hytrin) 1 mg PO BID KATTY Last Admin: 01/02/19 08:02 Dose: 1 mg
== END 2019-01-02 17:30 | DRG 201 ==
LOC: JD.ED 08:16 → JD.ICU 11:48
PROVIDERS: ADMIT Internal Medicine; ATTEND Internal Medicine
DX: I48.0 Paroxysmal atrial fibrillation (principal); I48.92 Unspecified atrial flutter; I25.9 Chronic ischemic heart disease, unspecified; I25.10 Atherosclerotic heart disease of native coronary artery without angina pectoris; I10 Essential (primary) hypertension; E78.5 Hyperlipidemia, unspecified; R73.03 Prediabetes; E87.6 Hypokalemia; G47.33 Obstructive sleep apnea (adult) (pediatric); K21.9 Gastro-esophageal reflux disease without esophagitis; M19.90 Unspecified osteoarthritis, unspecified site; I47.1 Supraventricular tachycardia; H54.7 Unspecified visual loss; E78.00 Pure hypercholesterolemia, unspecified; L40.9 Psoriasis, unspecified; Z87.891 Personal history of nicotine dependence; Z79.899 Other long term (current) drug therapy; Z79.82 Long term (current) use of aspirin
CPT/HCPCS: 36415; 71045; 71045-26; 80048; 80053; 80061; 80306; 82553; 83036; 83735; 84439; 84443; 84484; 85007; 85027; 93005; 93010; 96365; 96366; 96375; 99285; 99285-25; A9270-GY; J0153; J0282; J0360; J1650; J2060; J3475; J3490; J7030; J7040

== ENCOUNTER 2019-01-28 20:22 | Emergency (ER) | payer BC ==
[2019-01-28] MEDS ORDERED: Sodium Chloride 0.9% 1,000 ML IV SCH (21:00)
[2019-01-28] MEDS ORDERED: Diltiazem 50 MG/10 ML SDV IVPUSH ONE ×2 (21:03→22:49)
--- NOTE | 2019-01-28 21:06 | EDM.PDOC ---
ED HPI GENERAL MEDICAL PROBLEM - General Chief Complaint: Cardiovascular Problem Stated Complaint: A-FIB Time Seen by Provider: 01/28/19 20:55 Source of Information: Reports: Patient, Family (son) History Limitations: Reports: No Limitations - History of Present Illness INITIAL COMMENTS - FREE TEXT/NARRATIVE: 58-year-old male presents to the ED with palpitations in his chest. Patient has a history of developing atrial flutter/atrial fibrillation towards the end of December of this year. He was seen initially here and provided mediacation for rate control achieved. He was then sent to [place] for cardiology consultation. He was already on metoprolol 100 mg twice a day for blood pressure control. Cardizem 120 mg CD preparation was added once daily. Subtotally has undergone angiography which proved to be normal. He's had an echocardiogram. The plan was to leave him on Elavil is for greater than 6 weeks with a plan to try cardioversion towards the end of February. Around 6 1730 hrs. tonight he became aware of palpitations in his chest. He took his monitor at that he uses at home and his heart rate was as high as 132. In no associated dizziness lightheadedness or shortness of breath or central chest pain with this. 8 in the ED on the monitor is anywhere between 90 and 1 32/m. It demonstrates an atrial flutter with a predominant 3-1 conduction block. Onset: Today Onset Date: 01/28/19 Onset Time: 17:30 Duration: Hour(s):, Constant Location: Reports: Chest (Palpitations central chest.) Quality: Reports: Other Severity: Moderate (Aware of palpitations.) Improves with: Reports: None Worsens with: Reports: None Context: Denies: Activity, Exercise, Lifting, Sick Contact, Trauma, Other Associated Symptoms: Reports: No Other Symptoms, Other. 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 (see below) (Palpitations none.) - Related Data Allergies Allergy/AdvReac Type Severity Reaction Status Date / Time No Known Allergies Allergy Verified 01/28/19 20:29 Home Meds: Home Meds Ascorbic Acid [Vitamin C] 500 mg PO DAILY 12/31/18 [History] Calcium Carbonate [Calcium] 600 mg PO DAILY 12/31/18 [History] Gluc 2KCl/Chondr/Rm Hy/Hy Ac [Glucosamine & Chondroitin Cap] 1 cap PO DAILY [History] Lisinopril 40 mg PO DAILY 12/31/18 [History] Multivitamin [Multivitamins] 1 cap PO DAILY 12/31/18 [History] [place]-3/DHA/Epa/Fish Oil [[place]-3 Fish Oil Softgel] 520 mg PO DAILY 12/31/18 [ History] Vitamin E 400 units PO DAILY 12/31/18 [History] atorvaSTATin [Lipitor] 80 mg PO DAILY 12/31/18 [History] Albuterol Sulfate [Albuterol Sulfate Hfa] 2 puff IH DAILY 01/28/19 [History] Apixaban [Eliquis] 5 mg PO BID 01/28/19 [History] Diltiazem 120 mg PO DAILY 01/28/19 [History] Diltiazem HCl [Cardizem Cd] 240 mg PO DAILY #30 cap.er.24h 01/28/19 [Rx] Metoprolol Succinate [Toprol XL 50mg] 200 mg PO BID 01/28/19 [History] Temazepam [Restoril] 15 mg PO BEDTIME PRN 01/28/19 [History] Zolpidem [Ambien] 5 mg PO BEDTIME PRN 01/28/19 [History] Past Medical History HEENT History: Reports: Impaired Vision Other HEENT History: wears eyeglasses for reading. Cardiovascular History: Reports: Arrhythmia, High Cholesterol, Hypertension Other Cardiovascular History: Paroxysmal atrial tachycardia. It is therefore on Eliquis to prevent stroke Respiratory History: Reports: Sleep Apnea Other Respiratory History: uses C-PAP Gastrointestinal History: Reports: GERD Musculoskeletal History: Reports: Fracture, Osteoarthritis Dermatologic History: Reports: Psoriasis - Infectious Disease History Infectious Disease History: Reports: Chicken Pox - Past Surgical History HEENT Surgical History: Reports: Oral Surgery, Tonsillectomy GI Surgical History: Reports: Hernia, Abdominal Other GI Surgeries/Procedures: umbilical hernia MESH Neurological Surgical History: Reports: Other (See Below) Social & Family History - Family History Family Medical History: Noncontributory - Tobacco Use Smoking Status *Q: Former Smoker Used Tobacco, but Quit: Yes Month/Year Tobacco Last Used: 2015 - Caffeine Use Caffeine Use: Reports: Coffee - Recreational Drug Use Recreational Drug Use: No - Living Situation & Occupation Living situation: Reports: , with Spouse, with Family (1 son) 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 Usually nocturia 2) Musculoskeletal: Reports: Joint Pain Skin: Reports: No Symptoms (These hips low back and neck at times) Neurological: Reports: No Symptoms Psychiatric: Reports: No Symptoms Hematologic/Lymphatic: Reports: No Symptoms Immunologic: Reports: No Symptoms ED EXAM, GENERAL - Physical Exam Exam: See Below Exam Limited By: No Limitations General Appearance: Alert, WD/WN, No Apparent Distress, Other (Monitor reveals a heart rate as high as 1 27/m with a predominant atrial flutter pattern. Is to be a 3-14-1 conduction block. Pressure is elevated at 160 01/04/12 preferably due to him being anxious. Sats are 94% on room air. Afebrile.) Eye Exam: Bilateral Eye: Normal Inspection Throat/Mouth: Normal Inspection, Normal Lips, Normal Oropharynx Head: Atraumatic, Normocephalic Neck: Normal Inspection, Supple, Non-Tender, Full Range of Motion. No: Carotid Bruit, Lymphadenopathy (L), Lymphadenopathy (R) Respiratory/Chest: No Respiratory Distress, Lungs Clear, Normal Breath Sounds, Chest Non-Tender Cardiovascular: Normal Peripheral Pulses, No Edema, No Gallop, No Murmur, No Rub , Irregularly Irregular (Heart rate is 90-1 35/m predominantly atrial flutter pattern with 3-14-1 conduction block.). No: Regular Rate, Rhythm Peripheral Pulses: 2+: Posterior Tibial (L), Posterior Tibial (R), Dorsalis Pedis (L), Dorsalis Pedis (R) GI/Abdominal: Normal Bowel Sounds, Soft, Non-Tender, No Organomegaly, No Abnormal Bruit, No Mass, Pelvis Stable, Other (Moderately obese. No evidence of) Back Exam: Normal Inspection, Full Range of Motion. No: CVA Tenderness (L), CVA Tenderness (R) Extremities: Normal Inspection, Normal Range of Motion, Non-Tender, No Pedal Edema Neurological: Alert, Oriented, CN II-XII Intact, Normal Cognition Psychiatric: Normal Affect, Normal Mood Skin Exam: Warm, Dry, Intact, Normal Color, No Rash EKG INTERPRETATION EKG Date: 01/28/19 Time: 20:50 Rhythm: A-Flutter (With a rate of 70-130/m. Primarily at 3-1 conduction block.) Rate (Beats/Min): 90 [place]: LAD-Left [place] Deviation (-655.) P-Wave: Enlarged QRS: Other (Nonspecific intraventricular conduction delay most noted in V3 V4.) ST-T: Other (Diffuse T/ST segment changes throughout all leads due to atrial flutter.) QT: Prolonged (QTC is moderately prolonged at 520.) EKG Interpretation Comments: Abnormal ECG Course - Vital Signs Last Recorded V/S: Last Vital Signs Temp 36.8 C 01/28/19 20:26 Pulse 127 H 01/28/19 20:26 Resp 16 01/28/19 20:26 BP 163/112 H 01/28/19 20:26 Pulse Ox 94 L 01/28/19 20:26 - Orders/Labs/Meds Labs: Laboratory Tests 01/28/19 01/28/19 01/28/19 Range/Units 21:18 21:18 21:18 WBC 9.10 H (4.23-9.07) K/mm3 RBC 5.08 (4.63-6.08) M/mm3 Hgb 14.9 (13.7-17.5) gm/L Hct 43.6 (40.1-51.0) % MCV 85.8 (79.0-92.2) fl MCH 29.3 (25.7-32.2) pg MCHC 34.2 (32.2-35.5) g/dl RDW Std Deviation 39.8 (35.1-43.9) fL Plt Count 191 (163-337) K/mm3 MPV 9.9 (9.4-12.3) fl Neutrophils % (Manual) 75 H (40-60) % Band Neutrophils % 0 (0-10) % Lymphocytes % (Manual) 19 L (20-40) % Atypical Lymphs % 0 % Monocytes % (Manual) 5 (2-10) % Eosinophils % (Manual) 1 (0.8-7.0) % Basophils % (Manual) 0 L (0.2-1.2) Toxic Granulation 1+ slight Platelet Estimate Adequate Plt Morphology Comment Normal RBC Morph Comment Normal Sodium 138 (136-145) mEq/L Potassium 3.5 (3.5-5.1) mEq/L Chloride 101 (98-107) mEq/L Carbon Dioxide 29 (21-32) mEq/L Anion Gap 11.5 (5-15) BUN 18 (7-18) mg/dL Creatinine 0.9 (0.7-1.3) mg/dL Est Cr Clr Drug Dosing 79.75 mL/min Estimated GFR (MDRD) > 60 (>60) mL/min BUN/Creatinine Ratio 20.0 H (14-18) Glucose 122 H (74-106) mg/dL Calcium 9.3 (8.5-10.1) mg/dL Magnesium 1.8 (1.8-2.4) mg/dl Total Bilirubin 0.8 (0.2-1.0) mg/dL AST 23 (15-37) U/L ALT 33 (16-63) U/L Alkaline Phosphatase 78 (46-116) U/L Troponin I < 0.017 (0.00-0.056) ng/mL NT-Pro-B Natriuret Pep 686 H (0-125) pg/mL Total Protein 7.3 (6.4-8.2) g/dl Albumin 3.8 (3.4-5.0) g/dl Globulin 3.5 gm/dL Albumin/Globulin Ratio 1.1 (1-2) Meds: Medications Discontinued Medications Generic Name Dose Route Start Last Admin Trade Name Freq PRN Reason Stop Dose Admin Diltiazem HCl 10 mg 01/28/19 21:03 01/28/19 21:16 Cardizem IVPUSH 01/28/19 21:04 10 mg ONETIME ONE Administration Diltiazem HCl 180 mg 01/28/19 21:24 01/28/19 21:50 Cardizem Cd PO 01/28/19 21:25 180 mg ONETIME ONE Administration Diltiazem HCl 10 mg 01/28/19 22:49 01/28/19 23:06 Cardizem IVPUSH 01/28/19 22:50 10 mg ONETIME ONE Administration Furosemide 40 mg 01/28/19 23:12 01/28/19 23:42 Lasix PO 01/28/19 23:13 40 mg ONETIME ONE Administration Sodium Chloride 1,000 mls @ 100 mls/hr 01/28/19 21:00 01/28/19 21:17 Normal Saline IV 100 mls/hr ASDIRECTED [facility] Administration - Radiology Interpretation Free Text/Narrative:: 58-year-old male presents to the ED with sudden onset of palpitations in his chest that he appreciated about 1730 hrs. He took and neck she dose of metoprolol about 20 minutes later and after 2 hours his heart is still raising up 235/m. He is aware of intermittent palpitations in his chest without any central chest pain, dizziness, shortness of breath. Is been in atrial flutter/ atrial fibrillation since the end of December of this year. Socially was admitted with Cardizem drip to provide rate control. Early on 120 mg CD preparation of Cardizem daily. Recently has had cardiology follow-up including an angiogram which proved to be negative. His had an echocardiogram as well. He is scheduled for potential cardioversion towards the end of February. He is on Eliquis 5 mg twice a day. On examination in the ED he is in atrial flutter with primarily a 3-1 conduction block. Rate is anywhere from 70-135/m. Plan routine labs to be obtained including a serum magnesium and BNP level. Will give him Cardizem 10 mg IV and 180 mg CD preparation by mouth. - Re-Assessments/Exams Free Text/Narrative Re-Assessment/Exam: 01/28/19 21:33 remains in atrial flutter with a 4-1 conduction block with rate primarily in the 60s and 70s. Blood pressure is down to 139/74. 01/28/19 22:31 Labs are back showing a normal white count at 9.10. Differential 75% it fills with no bands. Hemoglobin is 14.9 with hematocrit of 43.6. Platelet callus 191,000. Sodium 138 with a potassium low-normal at 3.5. Chloride is 101 with a bicarbonate of 29. Anion gap is 11.5. BUN is 18 with a creatinine of 0.9. GFR remains greater than 60.. Glucose is 122. Calcium was 9.3. Magnesium is 1.8. Liver function normal. Troponin I was less than 0.017. BNP is mildly elevated at 686. Total protein is 7.3 with an albumin fraction of 3.8. 01/28/19 22:50: His heart rate has been staying in the 60s while lying in the bed. However when I went in to discuss his labs with him his heart rate shot up to as high as 1 33/m. I'm therefore going to repeat Cardizem 10 mg IV to stabilize his heart rate. He did take the oral 180 mg CD tablets about an hour ago and it will take a couple of hours to work. As have some mild congestive heart failure and I will give him Lasix 40 mg tablet to take first thing tomorrow morning to help clear this fluid out of his lungs. The plan is to increase his Cardizem to 240 mg CD once daily. This is to provide rate control. Departure - Departure Time of Disposition: 23:15 Disposition: Home, Self-Care 01 Condition: Fair Clinical Impression: Atrial flutter with rapid ventricular response Atrial flutter Qualifiers: Atrial flutter type: typical Qualified Code(s): I48.3 - Typical atrial flutter Prescriptions: Diltiazem HCl [Cardizem Cd] 240 mg PO DAILY #30 cap.er.24h Instructions: Atrial Flutter Referrals: Kwasi Leiva PA-C [Primary Care Provider] - Forms: ED Department Discharge Additional Instructions: Evaluation in the emergency room today in regards to chronic atrial flutter with increase in heart rate which we call rapid ventricular response. We will aware of the palpitations this afternoon and even with the next dose of metoprolol the heart rate did not settle down. Therefore you were treated in the ED with intravenous Cardizem 10 mg IV dose 2 and an oral tablet of the 180 mg CD preparation as well. This did provide rate control . Lab tests reveal a little buildup of fluids in your lungs due to the rapid heart rate. No signs of heart attack or any other problems identified in your electrolytes or magnesium levels etc. Her blood pressure is also mildly elevated. Therefore better heart rate control and blood pressure control will be achieved with an increase in the Cardizem to the 240 mg CD preparation once daily every morning. Her therefore to stop the 120 mg CD tablet of diltiazem and replace it with a 240 mg tablet. I will send you home with a Lasix tablet 40 mg strength to be taken first thing in the morning to help clear the fluid from your lungs. It is likely that she will only need 1 dose of this medication which her heart rate is controlled isn't will play catch up and remove the fluid from your lungs. 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 Continue all other medications as before
[2019-01-28] MEDS ORDERED: Diltiazem 180 MG Cap.CD PO ONE (21:24)
[2019-01-28] MEDS ORDERED: Furosemide 40 MG Tab PO ONE (23:12)
== END 2019-01-28 23:59 | disposition home or self-care (01) ==
LOC: JD.ED 20:22
DX: I48.3 Typical atrial flutter (principal); Z98.890 Other specified postprocedural states; Z87.891 Personal history of nicotine dependence; I10 Essential (primary) hypertension; M19.90 Unspecified osteoarthritis, unspecified site; Z79.899 Other long term (current) drug therapy
CPT/HCPCS: 36415; 80053; 83735; 83880; 84484; 85007; 85027; 96361; 96374; 96376; 99284; A9270; J3490; J7040; 93010; 99285

== ENCOUNTER 2022-05-18 12:11 | Emergency (ER) | payer BC ==
[2022-05-18] MEDS: Lidocaine 1% 10 ML MDV INJECT ONE ×2 (14:42→14:57)
== END 2022-05-18 16:08 | disposition home or self-care (01) ==
LOC: JD.ED 12:11
DX: J90 Pleural effusion, not elsewhere classified (principal); I48.91 Unspecified atrial fibrillation; E78.00 Pure hypercholesterolemia, unspecified; I10 Essential (primary) hypertension; Z79.899 Other long term (current) drug therapy; Z87.891 Personal history of nicotine dependence
CPT/HCPCS: 32554; 71045; 71045-26; 99285-25

== ENCOUNTER 2022-06-18 14:01 | Emergency (ER) | payer BC ==
[2022-06-18 15:28] LABS: ESTIMATED GFR 104 mL/min (>60)
== END 2022-06-18 17:20 | disposition home or self-care (01) ==
LOC: JD.ED 14:01
DX: R00.1 Bradycardia, unspecified (principal); E83.42 Hypomagnesemia; I48.91 Unspecified atrial fibrillation; E78.00 Pure hypercholesterolemia, unspecified; I10 Essential (primary) hypertension; K21.9 Gastro-esophageal reflux disease without esophagitis; M19.90 Unspecified osteoarthritis, unspecified site; Z79.899 Other long term (current) drug therapy
CPT/HCPCS: 36415; 80053; 83735; 84443; 84484; 85025; 93005; 93010; 99284

== ENCOUNTER 2023-07-07 14:30 | Emergency (ER) | payer OTHER ==
[2023-07-07 16:07] LABS: BASOPHILS PERCENT AUTO 0.6 % (0.0-1.0); EOSINOPHILS ABSOLUTE AUTO 0.1 K/mm3 (0.0-0.4); EOSINOPHILS PERCENT AUTO 0.8 % (0.0-6.0); HEMOGLOBIN 13.5 gm/dl (14.0-18.0); IMMATURE GRAN ABSOLUTE AUTO 0.02 K/mm3 (0.00-0.05); IMMATURE GRAN PERCENT AUTO 0.3 % (0.0-0.4); LYMPHOCYTES PERCENT AUTO 16.3 % (24.0-44.0); MEAN CORPUSCULAR HEMOGLOBIN 34.5 pg (28.0-32.0); MEAN CORPUSCULAR HGB CONC 34.6 g/dl (32.0-36.0); MEAN CORPUSCULAR VOLUME 99.7 fl (83.0-99.0); MEAN PLATELET VOLUME 10.8 fl (9.4-12.4); MONOCYTES ABSOLUTE AUTO 0.6 K/mm3 (0.0-0.8); MONOCYTES PERCENT AUTO 9.7 % (0.0-8.0); NEUTROPHILS ABSOLUTE AUTO 4.6 K/mm3 (1.8-7.7); NEUTROPHILS PERCENT AUTO 72.3 % (41.0-71.0); PLATELET COUNT,PLT 85 K/mm3 (150-400); RED BLOOD CELL COUNT 3.91 M/mm3 (4.52-5.90); WHITE BLOOD CELL COUNT,WBC 6.39 K/mm3 (3.9-11.3)
[2023-07-07 16:17] LABS: ALANINE AMINOTRANSFERASE,ALT 81 U/L (16-63); ALBUMIN 3.7 g/dl (3.4-5.0); ALKALINE PHOSPHATASE 169 U/L (46-116); ANION GAP 14.6 (5-15); ASPARTATE AMNIOTRANSFERASE,AST 131 U/L (15-37); BILIRUBIN TOTAL 2.3 mg/dL (0.2-1.0); BLOOD UREA NITROGEN,BUN 31 mg/dL (7-18); BUN/CREATININE RATIO 22.1 (14-18); C-REACTIVE PROTEIN <0.2 mg/dL (<1.0); CALCIUM 9.7 mg/dL (8.5-10.1); CARBON DIOXIDE,CO2 26 mEq/L (21-32); CHLORIDE,CL 100 mEq/L (98-107); CREATININE 1.4 mg/dL (0.7-1.3); EST CRCL DRUG DOSING (CG) 50.49 mL/min; ESTIMATED GFR 56 mL/min (>60); GLUCOSE RANDOM 133 mg/dL (70-99); MAGNESIUM 2.1 mg/dL (1.8-2.4); POTASSIUM,K 4.6 mEq/L (3.5-5.1); PROTEIN TOTAL,TP 7.6 g/dl (6.4-8.2); SODIUM,NA 136 mEq/L (136-145); TROPONIN I HIGH SENSITIVITY 13 pg/mL (<=76)
== END 2023-07-07 17:10 | disposition home or self-care (01) ==
LOC: JD.ED 14:30
DX: R06.01 Orthopnea (principal); I48.91 Unspecified atrial fibrillation; E78.00 Pure hypercholesterolemia, unspecified; I10 Essential (primary) hypertension; K21.9 Gastro-esophageal reflux disease without esophagitis; Z79.899 Other long term (current) drug therapy
CPT/HCPCS: 36415; 71045; 71045-26; 80053; 83735; 83880; 84484; 85025; 86140; 93005; 99285

== ENCOUNTER 2024-02-25 11:17 | Emergency (ER) | payer SELFPAY ==
[2024-02-25 11:56] LABS: BASOPHILS ABSOLUTE AUTO 0.1 K/mm3 (0.0-0.2); BASOPHILS PERCENT AUTO 0.9 % (0.0-1.0); EOSINOPHILS ABSOLUTE AUTO 0.1 K/mm3 (0.0-0.4); EOSINOPHILS PERCENT AUTO 1.5 % (0.0-6.0); HEMATOCRIT 41.3 % (42.0-52.0); HEMOGLOBIN 14.2 gm/dl (14.0-18.0); IMMATURE GRAN ABSOLUTE AUTO 0.05 K/mm3 (0.00-0.05); IMMATURE GRAN PERCENT AUTO 0.5 % (0.0-0.4); LYMPHOCYTES ABSOLUTE AUTO 1.7 K/mm3 (1.0-4.8); MEAN CORPUSCULAR HEMOGLOBIN 31.8 pg (28.0-32.0); MEAN CORPUSCULAR HGB CONC 34.4 g/dl (32.0-36.0); MEAN CORPUSCULAR VOLUME 92.6 fl (83.0-99.0); MEAN PLATELET VOLUME 10.3 fl (9.4-12.4); MONOCYTES ABSOLUTE AUTO 0.9 K/mm3 (0.0-0.8); MONOCYTES PERCENT AUTO 9.4 % (0.0-8.0); NEUTROPHILS ABSOLUTE AUTO 6.4 K/mm3 (1.8-7.7); NEUTROPHILS PERCENT AUTO 69.7 % (41.0-71.0); PLATELET COUNT,PLT 142 K/mm3 (150-400); RED BLOOD CELL COUNT 4.46 M/mm3 (4.52-5.90); WHITE BLOOD CELL COUNT,WBC 9.19 K/mm3 (3.9-11.3)
[2024-02-25 12:03] LABS: INR 1.08; PROTHROMBIN TIME 11.5 SECONDS (9.7-12.0)
[2024-02-25 12:16] LABS: A/G RATIO 1.1 (1-2); ALBUMIN 4.2 g/dl (3.4-5.0); ANION GAP 16.1 (5-15); BUN/CREATININE RATIO 28.5 (14-18); CREATININE 1.3 mg/dL (0.7-1.3); EST CRCL DRUG DOSING (CG) 51.8 mL/min; MAGNESIUM 1.8 mg/dL (1.8-2.4); POTASSIUM,K 5.1 mEq/L (3.5-5.1)
[2024-02-25 12:39] LABS: C-REACTIVE PROTEIN 0.08 mg/dL (<0.30); URIC ACID 9.2 mg/dL (3.5-7.2)
== END 2024-02-25 14:02 | disposition home or self-care (01) ==
LOC: JD.ED 11:17
DX: M10.9 Gout, unspecified (principal); R00.1 Bradycardia, unspecified; K21.9 Gastro-esophageal reflux disease without esophagitis; Z79.82 Long term (current) use of aspirin; Z79.51 Long term (current) use of inhaled steroids; Z79.899 Other long term (current) drug therapy; Z87.891 Personal history of nicotine dependence
CPT/HCPCS: 36415; 73610-26-RT; 73610-RT; 80053; 83735; 83880; 84484; 84550; 85025; 85610; 85652; 86140; 93005; 99284

== ENCOUNTER 2025-08-01 13:07 | Inpatient (IN) | payer OTHER ==
[2025-08-01 13:53] LABS: BASE EXCESS ARTERIAL 0.6 (-2-2.0); BICARBONATE,ARTERIAL 24.5 meq/L (22.0-26.0); O2 SATURATION ARTERIAL 87.5 % (96.0-97.0); PCO2 ARTERIAL 36.0 mmHg (35.0-45.0); PO2 ARTERIAL 56.0 mmHg (80.0-100.0)
[2025-08-01 14:01] LABS: BASOPHILS ABSOLUTE AUTO 0.1 K/mm3 (0.0-0.2); BASOPHILS PERCENT AUTO 0.9 % (0.0-1.0); EOSINOPHILS ABSOLUTE AUTO 0.1 K/mm3 (0.0-0.4); EOSINOPHILS PERCENT AUTO 1.5 % (0.0-6.0); IMMATURE GRAN ABSOLUTE AUTO 0.03 K/mm3 (0.00-0.05); IMMATURE GRAN PERCENT AUTO 0.4 % (0.0-0.4); LYMPHOCYTES ABSOLUTE AUTO 1.2 K/mm3 (1.0-4.8); LYMPHOCYTES PERCENT AUTO 18.4 % (24.0-44.0); MEAN PLATELET VOLUME 10.0 fl (9.4-12.4); MONOCYTES ABSOLUTE AUTO 0.8 K/mm3 (0.0-0.8); MONOCYTES PERCENT AUTO 11.2 % (0.0-8.0); NEUTROPHILS ABSOLUTE AUTO 4.5 K/mm3 (1.8-7.7); NEUTROPHILS PERCENT AUTO 67.6 % (41.0-71.0); NRBC ABSOLUTE 0.00 (0.00-0.02); NRBC PERCENT 0.0 % (0.0-0.2); PLATELET COUNT,PLT 123 K/mm3 (150-400); RED BLOOD CELL COUNT 4.04 M/mm3 (4.52-5.90); WHITE BLOOD CELL COUNT,WBC 6.67 K/mm3 (3.9-11.3)
[2025-08-01 14:33] LABS: CREATINE KINASE,CK 309.0 U/L (39-308); ETHANOL BLOOD MEDICAL 0.06 gm% (0.00); TROPONIN I HIGH SENSITIVITY 13.0 pg/mL (<=76)
[2025-08-01 15:21] LABS: A/G RATIO 1.1 (1-2); ALANINE AMINOTRANSFERASE,ALT 52.0 U/L (16-63); ASPARTATE AMNIOTRANSFERASE,AST 84.0 U/L (15-37); BILIRUBIN TOTAL 0.8 mg/dL (0.2-1.0); BLOOD UREA NITROGEN,BUN 40.0 mg/dL (7-18); CARBON DIOXIDE,CO2 22.0 mEq/L (21-32); CHLORIDE,CL 101.0 mEq/L (98-107); CREATININE 1.4 mg/dL (0.7-1.3); EST CRCL DRUG DOSING (CG) 49.18 mL/min; ESTIMATED GFR 56.0 mL/min (>60); GLUCOSE RANDOM 112.0 mg/dL (70-99); POTASSIUM,K 5.3 mEq/L (3.5-5.1); PROTEIN TOTAL,TP 7.1 g/dl (6.4-8.2); SODIUM,NA 138.0 mEq/L (136-145)
[2025-08-01] MEDS: Furosemide 40 MG/4 ML VIAL IVPUSH ONE (15:55)
[2025-08-01 16:42] LABS: APPEARANCE,URINE CLEAR (Clear); GLUCOSE,URINE NEGATIVE (Negative); OCCULT BLOOD,URINE NEGATIVE (Negative)
[2025-08-01 16:49] LABS: EPITHELIAL CELLS,URINE 0-5 /hpf (0-5)
[2025-08-01 16:52] LABS: BUPRENORPHINE SCREEN,URINE NEGATIVE (CUTOFF=10); METHADONE SCREEN, URINE NEGATIVE (CUT0FF=200); METHAMPHETAMINES SCREEN, URINE NEGATIVE (CUTOFF=500); OXYCODONE SCREEN,URINE NEGATIVE (CUT0FF=100); THC SCREEN,URINE 20 NG/ML NEGATIVE (CUTOFF=50)
[2025-08-01 16:57] LABS: AMPHETAMINES SCREEN, URINE NEGATIVE (CUTOFF=500)
[2025-08-02 05:32] LABS: BASOPHILS ABSOLUTE AUTO 0.1 K/mm3 (0.0-0.2); BASOPHILS PERCENT AUTO 0.9 % (0.0-1.0); EOSINOPHILS ABSOLUTE AUTO 0.1 K/mm3 (0.0-0.4); EOSINOPHILS PERCENT AUTO 0.9 % (0.0-6.0); IMMATURE GRAN ABSOLUTE AUTO 0.03 K/mm3 (0.00-0.05); IMMATURE GRAN PERCENT AUTO 0.4 % (0.0-0.4); LYMPHOCYTES ABSOLUTE AUTO 1.1 K/mm3 (1.0-4.8); LYMPHOCYTES PERCENT AUTO 16.5 % (24.0-44.0); MEAN PLATELET VOLUME 10.3 fl (9.4-12.4); MONOCYTES ABSOLUTE AUTO 0.8 K/mm3 (0.0-0.8); MONOCYTES PERCENT AUTO 11.2 % (0.0-8.0); NEUTROPHILS ABSOLUTE AUTO 4.7 K/mm3 (1.8-7.7); NEUTROPHILS PERCENT AUTO 70.1 % (41.0-71.0); NRBC ABSOLUTE 0.00 (0.00-0.02); NRBC PERCENT 0.0 % (0.0-0.2); PLATELET COUNT,PLT 103 K/mm3 (150-400); RED BLOOD CELL COUNT 4.08 M/mm3 (4.52-5.90); WHITE BLOOD CELL COUNT,WBC 6.72 K/mm3 (3.9-11.3)
[2025-08-02 06:06] LABS: A/G RATIO 1.1 (1-2); ALANINE AMINOTRANSFERASE,ALT 51.0 U/L (16-63); ASPARTATE AMNIOTRANSFERASE,AST 78.0 U/L (15-37); BILIRUBIN TOTAL 1.4 mg/dL (0.2-1.0); BLOOD UREA NITROGEN,BUN 40.0 mg/dL (7-18); CARBON DIOXIDE,CO2 24.0 mEq/L (21-32); CHLORIDE,CL 98.0 mEq/L (98-107); CREATININE 1.3 mg/dL (0.7-1.3); EST CRCL DRUG DOSING (CG) 52.96 mL/min; ESTIMATED GFR 61.0 mL/min (>60); GLUCOSE RANDOM 107.0 mg/dL (70-99); POTASSIUM,K 5.0 mEq/L (3.5-5.1); PROTEIN TOTAL,TP 7.3 g/dl (6.4-8.2); SODIUM,NA 136.0 mEq/L (136-145)
[2025-08-02 07:16] LABS: IRON,FE 103 ug/dL (65-175); PERCENT FE SATURATION 31 % (20-55)
[2025-08-02] MEDS: Sodium Chloride 0.9% 10 ML Syringe FLUSH ONE (09:51)
[2025-08-02] MEDS: Iopamidol 755 Mg/ML 100 ML Bottle IVPUSH ONE (09:51)
[2025-08-02] MEDS: Furosemide 40 MG/4 ML VIAL IVPUSH SCH ×2 (11:39→20:41)
[2025-08-02] MEDS: cefTRIAXone 1 GM in Water For Injection, Sterile 10 ML IVPUSH SCH (16:12)
[2025-08-03 04:48] LABS: BASOPHILS ABSOLUTE AUTO 0.0 K/mm3 (0.0-0.2); BASOPHILS PERCENT AUTO 0.7 % (0.0-1.0); EOSINOPHILS ABSOLUTE AUTO 0.1 K/mm3 (0.0-0.4); EOSINOPHILS PERCENT AUTO 2.2 % (0.0-6.0); IMMATURE GRAN ABSOLUTE AUTO 0.03 K/mm3 (0.00-0.05); IMMATURE GRAN PERCENT AUTO 0.5 % (0.0-0.4); LYMPHOCYTES ABSOLUTE AUTO 1.1 K/mm3 (1.0-4.8); LYMPHOCYTES PERCENT AUTO 18.5 % (24.0-44.0); MEAN PLATELET VOLUME 10.2 fl (9.4-12.4); MONOCYTES ABSOLUTE AUTO 0.8 K/mm3 (0.0-0.8); MONOCYTES PERCENT AUTO 12.9 % (0.0-8.0); NEUTROPHILS ABSOLUTE AUTO 3.9 K/mm3 (1.8-7.7); NEUTROPHILS PERCENT AUTO 65.2 % (41.0-71.0); NRBC ABSOLUTE 0.00 (0.00-0.02); NRBC PERCENT 0.0 % (0.0-0.2); PLATELET COUNT,PLT 108 K/mm3 (150-400); RED BLOOD CELL COUNT 3.93 M/mm3 (4.52-5.90); WHITE BLOOD CELL COUNT,WBC 5.99 K/mm3 (3.9-11.3)
[2025-08-03 05:23] LABS: A/G RATIO 1.0 (1-2); ALANINE AMINOTRANSFERASE,ALT 42.0 U/L (16-63); ASPARTATE AMNIOTRANSFERASE,AST 62.0 U/L (15-37); BILIRUBIN TOTAL 1.1 mg/dL (0.2-1.0); BLOOD UREA NITROGEN,BUN 39.0 mg/dL (7-18); CARBON DIOXIDE,CO2 27.0 mEq/L (21-32); CHLORIDE,CL 99.0 mEq/L (98-107); CREATININE 1.5 mg/dL (0.7-1.3); EST CRCL DRUG DOSING (CG) 45.9 mL/min; ESTIMATED GFR 51.0 mL/min (>60); GLUCOSE RANDOM 91.0 mg/dL (70-99); POTASSIUM,K 5.0 mEq/L (3.5-5.1); PROTEIN TOTAL,TP 7.1 g/dl (6.4-8.2); SODIUM,NA 137.0 mEq/L (136-145)
[2025-08-03 17:08] LABS: INR 1.28
[2025-08-03 17:09] LABS: PTT,PARTIAL THROMBOPLSTIN TIME 29.4 SECONDS (21.7-31.4)
[2025-08-04 07:09] LABS: BASOPHILS ABSOLUTE AUTO 0.1 K/mm3 (0.0-0.2); BASOPHILS PERCENT AUTO 0.9 % (0.0-1.0); EOSINOPHILS ABSOLUTE AUTO 0.1 K/mm3 (0.0-0.4); EOSINOPHILS PERCENT AUTO 1.5 % (0.0-6.0); IMMATURE GRAN ABSOLUTE AUTO 0.02 K/mm3 (0.00-0.05); IMMATURE GRAN PERCENT AUTO 0.3 % (0.0-0.4); LYMPHOCYTES ABSOLUTE AUTO 1.0 K/mm3 (1.0-4.8); LYMPHOCYTES PERCENT AUTO 17.2 % (24.0-44.0); MEAN PLATELET VOLUME 10.6 fl (9.4-12.4); MONOCYTES ABSOLUTE AUTO 0.8 K/mm3 (0.0-0.8); MONOCYTES PERCENT AUTO 13.1 % (0.0-8.0); NEUTROPHILS ABSOLUTE AUTO 3.9 K/mm3 (1.8-7.7); NEUTROPHILS PERCENT AUTO 67.0 % (41.0-71.0); NRBC ABSOLUTE 0.00 (0.00-0.02); NRBC PERCENT 0.0 % (0.0-0.2); PLATELET COUNT,PLT 104 K/mm3 (150-400); RED BLOOD CELL COUNT 4.03 M/mm3 (4.52-5.90); WHITE BLOOD CELL COUNT,WBC 5.87 K/mm3 (3.9-11.3)
[2025-08-04 07:28] LABS: A/G RATIO 1.0 (1-2); ALANINE AMINOTRANSFERASE,ALT 42.0 U/L (16-63); ASPARTATE AMNIOTRANSFERASE,AST 68.0 U/L (15-37); BILIRUBIN TOTAL 1.1 mg/dL (0.2-1.0); BLOOD UREA NITROGEN,BUN 45.0 mg/dL (7-18); CARBON DIOXIDE,CO2 29.0 mEq/L (21-32); CHLORIDE,CL 101.0 mEq/L (98-107); CREATININE 1.6 mg/dL (0.7-1.3); EST CRCL DRUG DOSING (CG) 43.03 mL/min; ESTIMATED GFR 48.0 mL/min (>60); GLUCOSE RANDOM 99.0 mg/dL (70-99); POTASSIUM,K 4.9 mEq/L (3.5-5.1); PROTEIN TOTAL,TP 7.4 g/dl (6.4-8.2); SODIUM,NA 139.0 mEq/L (136-145)
[2025-08-04 11:43] LABS: BODY FLUID TYPE PLEURAL FLUID
[2025-08-04 12:11] LABS: MONONUCLEAR, BODY FLUID 94.8 % (0.0-0.0); POLYMORPHONUCLEAR, BODY FLUID 5.2 % (0.0-0.0)
[2025-08-04 12:32] LABS: APPEARANCE,BODY FLUID CLOUDY; COLOR,BODY FLUID AMBER; SITE,BODY FLUID PLEURAL; VOLUME BODY FLUID 40 ML; WBC BODY FLUID 737 /uL (0-0)
[2025-08-04 14:03] LABS: GLUCOSE,BODY FLUID 93 mg/dL; PROTEIN,BODY FLUID 4.9 gm/dl
[2025-08-05] MEDS: LORazepam 2 MG/ML SDV IVPUSH PRN (04:32)
[2025-08-05 04:49] LABS: BASOPHILS ABSOLUTE AUTO 0.1 K/mm3 (0.0-0.2); BASOPHILS PERCENT AUTO 0.9 % (0.0-1.0); EOSINOPHILS ABSOLUTE AUTO 0.1 K/mm3 (0.0-0.4); EOSINOPHILS PERCENT AUTO 1.9 % (0.0-6.0); IMMATURE GRAN ABSOLUTE AUTO 0.02 K/mm3 (0.00-0.05); IMMATURE GRAN PERCENT AUTO 0.3 % (0.0-0.4); LYMPHOCYTES ABSOLUTE AUTO 1.2 K/mm3 (1.0-4.8); LYMPHOCYTES PERCENT AUTO 20.5 % (24.0-44.0); MEAN PLATELET VOLUME 10.6 fl (9.4-12.4); MONOCYTES ABSOLUTE AUTO 0.8 K/mm3 (0.0-0.8); MONOCYTES PERCENT AUTO 14.2 % (0.0-8.0); NEUTROPHILS ABSOLUTE AUTO 3.6 K/mm3 (1.8-7.7); NEUTROPHILS PERCENT AUTO 62.2 % (41.0-71.0); NRBC ABSOLUTE 0.00 (0.00-0.02); NRBC PERCENT 0.0 % (0.0-0.2); PLATELET COUNT,PLT 111 K/mm3 (150-400); RED BLOOD CELL COUNT 3.91 M/mm3 (4.52-5.90); WHITE BLOOD CELL COUNT,WBC 5.76 K/mm3 (3.9-11.3)
[2025-08-05 05:17] LABS: A/G RATIO 1.0 (1-2); ALANINE AMINOTRANSFERASE,ALT 40.0 U/L (16-63); ASPARTATE AMNIOTRANSFERASE,AST 64.0 U/L (15-37); BILIRUBIN TOTAL 1.1 mg/dL (0.2-1.0); BLOOD UREA NITROGEN,BUN 50.0 mg/dL (7-18); CARBON DIOXIDE,CO2 25.0 mEq/L (21-32); CHLORIDE,CL 101.0 mEq/L (98-107); CREATININE 1.7 mg/dL (0.7-1.3); EST CRCL DRUG DOSING (CG) 40.5 mL/min; ESTIMATED GFR 44.0 mL/min (>60); GLUCOSE RANDOM 94.0 mg/dL (70-99); POTASSIUM,K 4.6 mEq/L (3.5-5.1); PROTEIN TOTAL,TP 7.2 g/dl (6.4-8.2); SODIUM,NA 138.0 mEq/L (136-145)
[2025-08-05] MEDS: LORazepam 2 MG/ML SDV IV PRN ×2 (08:00→10:13)
[2025-08-05] MEDS: Furosemide 40 MG/4 ML VIAL IVPUSH SCH (09:44)
[2025-08-05 11:27] LABS: TSH 1.457 uIU/mL (0.358-3.74)
[2025-08-05] MEDS: Magnesium Sulfate 2 GM/50 mL 2 GM in Premix Bag 1 BAG IV ONE (14:42)
[2025-08-06 09:22] LABS: BASOPHILS ABSOLUTE AUTO 0.0 K/mm3 (0.0-0.2); BASOPHILS PERCENT AUTO 0.7 % (0.0-1.0); EOSINOPHILS ABSOLUTE AUTO 0.1 K/mm3 (0.0-0.4); EOSINOPHILS PERCENT AUTO 1.7 % (0.0-6.0); IMMATURE GRAN ABSOLUTE AUTO 0.01 K/mm3 (0.00-0.05); IMMATURE GRAN PERCENT AUTO 0.2 % (0.0-0.4); LYMPHOCYTES ABSOLUTE AUTO 0.8 K/mm3 (1.0-4.8); LYMPHOCYTES PERCENT AUTO 13.4 % (24.0-44.0); MEAN PLATELET VOLUME 10.7 fl (9.4-12.4); MONOCYTES ABSOLUTE AUTO 0.6 K/mm3 (0.0-0.8); MONOCYTES PERCENT AUTO 9.7 % (0.0-8.0); NEUTROPHILS ABSOLUTE AUTO 4.3 K/mm3 (1.8-7.7); NEUTROPHILS PERCENT AUTO 74.3 % (41.0-71.0); NRBC ABSOLUTE 0.00 (0.00-0.02); NRBC PERCENT 0.0 % (0.0-0.2); PLATELET COUNT,PLT 102 K/mm3 (150-400); RED BLOOD CELL COUNT 4.42 M/mm3 (4.52-5.90); WHITE BLOOD CELL COUNT,WBC 5.75 K/mm3 (3.9-11.3)
[2025-08-06 09:49] LABS: A/G RATIO 1.0 (1-2); ALANINE AMINOTRANSFERASE,ALT 43.0 U/L (16-63); ASPARTATE AMNIOTRANSFERASE,AST 70.0 U/L (15-37); BILIRUBIN TOTAL 1.3 mg/dL (0.2-1.0); BLOOD UREA NITROGEN,BUN 42.0 mg/dL (7-18); CARBON DIOXIDE,CO2 29.0 mEq/L (21-32); CHLORIDE,CL 99.0 mEq/L (98-107); CREATININE 1.3 mg/dL (0.7-1.3); EST CRCL DRUG DOSING (CG) 52.96 mL/min; ESTIMATED GFR 61.0 mL/min (>60); GLUCOSE RANDOM 110.0 mg/dL (70-99); POTASSIUM,K 4.6 mEq/L (3.5-5.1); PROTEIN TOTAL,TP 7.6 g/dl (6.4-8.2); SODIUM,NA 138.0 mEq/L (136-145)
== END 2025-08-06 14:25 | disposition home or self-care (01) | DRG 186 ==
LOC: JD.ED 13:07 → JD.MS 16:07 → JD.ICU 08-05 11:00
PROVIDERS: ADMIT Family Medicine; ATTEND Family Medicine
PROC: 0W993ZZ Drainage of Right Pleural Cavity, Percutaneous Approach (ICD-10-PCS; principal; 2025-08-01)
DX: J90 Pleural effusion, not elsewhere classified (principal); G92.8 Other toxic encephalopathy; J96.01 Acute respiratory failure with hypoxia; J18.9 Pneumonia, unspecified organism; F10.239 Alcohol dependence with withdrawal, unspecified; N17.9 Acute kidney failure, unspecified; R56.9 Unspecified convulsions; K70.10 Alcoholic hepatitis without ascites; R00.1 Bradycardia, unspecified; I50.9 Heart failure, unspecified; E87.5 Hyperkalemia; D64.9 Anemia, unspecified; E66.9 Obesity, unspecified; I48.91 Unspecified atrial fibrillation; E78.00 Pure hypercholesterolemia, unspecified; M19.90 Unspecified osteoarthritis, unspecified site; G47.33 Obstructive sleep apnea (adult) (pediatric); H54.7 Unspecified visual loss; K21.9 Gastro-esophageal reflux disease without esophagitis; I11.0 Hypertensive heart disease with heart failure; Z87.891 Personal history of nicotine dependence; Z79.82 Long term (current) use of aspirin; Z98.890 Other specified postprocedural states; Z79.899 Other long term (current) drug therapy; Z90.49 Acquired absence of other specified parts of digestive tract; Z68.38 Body mass index [BMI] 38.0-38.9, adult
CPT/HCPCS: 32555; 36415; 36600; 70450; 70450-26; 71045; 71045-26; 71260; 71260-26; 76942; 80053; 80306; 80307; 81001; 82140; 82272; 82550; 82607; 82728; 82803; 82945; 82947; 83540; 83690; 83735; 83880; 83986; 84157; 84443; 84466; 84484; 85025; 85610; 85730; 86140; 87070; 87075; 87205; 89050; 93005; 93010; 94761; 94762; 96374; 96375; 97112-GP; 97116-GP; 97162-GP; 99285; 99285-25; A9270-GY; J0456; J0696; J1271; J1650; J1938; J2003; J2060; J2765; J3475; J7030; J7050; Q9967

== ENCOUNTER 2025-10-07 15:36 | Emergency (ER) | payer OTHER ==
[2025-10-07] MEDS ORDERED: Sodium Chloride 0.9% 10 ML Syringe FLUSH PRN (16:06)
[2025-10-07 16:14] LABS: BASOPHILS ABSOLUTE AUTO 0.0 K/mm3 (0.0-0.2); BASOPHILS PERCENT AUTO 0.5 % (0.0-1.0); EOSINOPHILS ABSOLUTE AUTO 0.0 K/mm3 (0.0-0.4); EOSINOPHILS PERCENT AUTO 0.2 % (0.0-6.0); IMMATURE GRAN ABSOLUTE AUTO 0.04 K/mm3 (0.00-0.05); IMMATURE GRAN PERCENT AUTO 0.5 % (0.0-0.4); LYMPHOCYTES ABSOLUTE AUTO 1.0 K/mm3 (1.0-4.8); LYMPHOCYTES PERCENT AUTO 12.3 % (24.0-44.0); MEAN PLATELET VOLUME 10.1 fl (9.4-12.4); MONOCYTES ABSOLUTE AUTO 0.6 K/mm3 (0.0-0.8); MONOCYTES PERCENT AUTO 6.9 % (0.0-8.0); NEUTROPHILS ABSOLUTE AUTO 6.6 K/mm3 (1.8-7.7); NEUTROPHILS PERCENT AUTO 79.6 % (41.0-71.0); NRBC ABSOLUTE 0.00 (0.00-0.02); NRBC PERCENT 0.0 % (0.0-0.2); PLATELET COUNT,PLT 94 K/mm3 (150-400); RED BLOOD CELL COUNT 3.82 M/mm3 (4.52-5.90); WHITE BLOOD CELL COUNT,WBC 8.23 K/mm3 (3.9-11.3)
[2025-10-07 16:44] LABS: A/G RATIO 1.0 (1-2); ALANINE AMINOTRANSFERASE,ALT 27.0 U/L (16-63); ASPARTATE AMNIOTRANSFERASE,AST 38.0 U/L (15-37); BILIRUBIN TOTAL 1.1 mg/dL (0.2-1.0); BLOOD UREA NITROGEN,BUN 63.0 mg/dL (7-18); CARBON DIOXIDE,CO2 28.0 mEq/L (21-32); CHLORIDE,CL 98.0 mEq/L (98-107); CREATININE 2.5 mg/dL (0.7-1.3); EST CRCL DRUG DOSING (CG) 26.58 mL/min; ESTIMATED GFR 28.0 mL/min (>60); GLUCOSE RANDOM 130.0 mg/dL (70-99); POTASSIUM,K 4.6 mEq/L (3.5-5.1); PROTEIN TOTAL,TP 7.7 g/dl (6.4-8.2); SODIUM,NA 136.0 mEq/L (136-145)
[2025-10-07 20:41] LABS: BLOOD UREA NITROGEN,BUN 56.0 mg/dL (7-18); CARBON DIOXIDE,CO2 27.0 mEq/L (21-32); CHLORIDE,CL 102.0 mEq/L (98-107); CREATININE 2.2 mg/dL (0.7-1.3); EST CRCL DRUG DOSING (CG) 30.21 mL/min; ESTIMATED GFR 32.0 mL/min (>60); GLUCOSE RANDOM 101.0 mg/dL (70-99); POTASSIUM,K 4.4 mEq/L (3.5-5.1); SODIUM,NA 138.0 mEq/L (136-145)
== END 2025-10-07 21:10 | disposition home or self-care (01) ==
LOC: JD.ED 15:36
DX: N17.9 Acute kidney failure, unspecified (principal); E86.0 Dehydration; I10 Essential (primary) hypertension; I48.91 Unspecified atrial fibrillation; M19.90 Unspecified osteoarthritis, unspecified site; Z79.899 Other long term (current) drug therapy; Z79.01 Long term (current) use of anticoagulants
CPT/HCPCS: 36415; 80048; 80053; 83690; 85025; 96360; 96361; 99284; J7030; 99283